=== PATIENT | female | born 1965 | race Caucasian/White ===

== ENCOUNTER 2018-07-25 23:24 | Inpatient (IN) | payer OTHER ==
[~2018-07-25] VITALS: Ht 160 cm; Wt 95.7 kg
[~2018-07-25 23:24] MED LIST: ALBU2.5V5 NEB; ASPI-630 PO; ATOR40TA59 PO; BENZ100C PO; CITA20TA9 PO; DICL50TA4 PO; FAMO-63 PO; LISI-130 PO; METO25TA4 PO; NITR1OIN TD; ONDA8TAB15 PO
[2018-07-26] VITALS (7 sets, daily range): BP systolic 90–135; BP diastolic 43–73
[2018-07-26] MEDS ORDERED: ALBUTEROL SULFATE 2.5 MG/3 ML NEBU. NEB PRN (05:45)
[2018-07-26 06:30] LABS: ALBUMIN 3.3 g/dL (3.4-5.0); ALBUMIN/GLOBULIN RATIO 1.1 (1.0-1.7); CALCIUM 8.6 mg/dL (8.5-10.1); CREATININE 0.9 mg/dL (0.6-1.0); GFR 65.5; POTASSIUM 4.8 mmol/L (3.5-5.1); TOTAL BILIRUBIN 0.2 mg/dL (0.2-1.0); TOTAL PROTEIN 6.2 g/dL (6.4-8.2)
[2018-07-26 06:52] LABS: BASO % 1 % (0-3); EOS # 0.1 x10^3/uL (0.0-0.7); EOS % 1 % (0-3); HEMATOCRIT 34.7 % (36.0-47.0); HEMOGLOBIN 11.4 g/dL (12.0-15.5); LYMPH # 1.5 x10^3/uL (1.0-4.8); LYMPH % 19 % (24-48); MEAN CORPUSCULAR HEMOGLOBIN 29 pg (25-35); MEAN CORPUSCULAR HGB CONC 33 g/dL (31-37); MEAN CORPUSCULAR VOLUME 87 fL (79-100); MONO # 0.5 x10^3/uL (0.0-1.1); MONO % 7 % (0-9); NEUT # 5.7 x10^3uL (1.8-7.7); NEUT % 73 % (31-73); PLATELET COUNT 270 x10^3/uL (140-400); RED BLOOD COUNT 3.99 x10^6/uL (3.50-5.40); RED CELL DISTRIBUTION WIDTH 15.2 % (11.5-14.5); WHITE BLOOD COUNT 7.9 x10^3/uL (4.0-11.0)
[2018-07-26] MEDS: DICLOFENAC SODIUM 25 MG TABLET.DR PO SCH ×2 (09:30→20:58)
[2018-07-26] MEDS: METOPROLOL TART IMMED RELEASE 25 MG TABLET. PO SCH ×2 (09:31→20:54)
[2018-07-26] MEDS: oxyCODONE IR 5 MG TABLET PO PRN ×2 (09:31→16:15)
[2018-07-26] MEDS: ASPIRIN CHEWABLE 81 MG TABLET. PO SCH (09:31)
[2018-07-26] MEDS: LISINOPRIL 20 MG TABLET PO SCH (09:31)
--- NOTE | 2018-07-26 09:52 | PDOC2 ---
CONSULT Date of Consult Date of Consult DATE: 07/26/18 TIME: 09:52 Reason for Consult Reason for Consult: Chest pain Referring Physician Referring Physician: Dr. Bunch Identification/Chief Complaint Chief Complaint Chest pain Source Source: Chart review, Patient History of Present Illness Reason for Visit: 53-year-old female initially presented to [facility] with atypical chest pain and a two-month history of tingling and numbness in her arms. CT scan of the cervical spine showed severe spinal stenosis at C4/C5 and C5/C6 level and transfer to [facility] for possible myelogram and neurosurgical evaluation. The chest pain she described was very atypical and not related to exertion or food intake. She denied any orthopnea/PND, palpitations or syncope. She has had cardiac catheterization in October 2017 that showed 50-60% stenosis of RCA which was physiologically insignificant based on IFR measurement. Past Medical History Past Medical History Nonobstructive coronary artery disease involving RCA Hypertension Hyperlipidemia Asthma DVT Past Surgical History Past Surgical History Right total knee arthroplasty Back surgery Cholecystectomy Hysterectomy Family History Family History Coronary artery disease Social History Social History Denies any smoking, alcohol or drug abuse Current Medications Current Medications Current Medications Albuterol Sulfate (Ventolin Neb Soln) 2.5 mg PRN Q4HRS PRN NEB SHORTNESS OF BREATH; Start 07/26/18 at 05:45 Aspirin (Children'S Aspirin) 81 mg DAILY PO Last administered on 07/26/18at 09: 31; Start 07/26/18 at 09:00 Atorvastatin Calcium (Lipitor) 40 mg QHS PO ; Start 07/26/18 at 21:00 Metoprolol Tartrate (Lopressor) 12.5 mg BID PO Last administered on 07/26/18at 09:31; Start 07/26/18 at 09:00 Diclofenac Sodium (Voltaren) 50 mg BID PO Last administered on 07/26/18at 09:30 ; Start 07/26/18 at 09:00 Lisinopril (Prinivil) 40 mg DAILY PO Last administered on 07/26/18at 09:31; Start 07/26/18 at 09:00 Oxycodone HCl (Roxicodone) 5 mg PRN Q6HRS PRN PO MODERATE TO SEVERE PAIN Last administered on 07/26/18at 09:31; Start 07/26/18 at 08:45 Active Scripts Active Diclofenac Sodium 50 Mg Tablet.dr 1 Tab PO BID Reported Metoprolol Tartrate 25 Mg Tablet 0.5 Tab PO BID Lisinopril 40 Mg Tablet 1 Tab PO DAILY Atorvastatin Calcium 40 Mg Tablet 1 Tab PO QHS Aspirin 81 Mg Tab.chew 1 Tab PO DAILY Albuterol Sulfate Neb Soln (Albuterol Sulfate) 2.5 Mg/3 Ml Vial.neb 1 Vial NEB PRN Q4HRS PRN Allergies Allergies: Coded Allergies: Penicillins (Verified Allergy, Intermediate, 10/30/17) codeine (Verified Allergy, Intermediate, 10/30/17) ibuprofen (Verified Allergy, Intermediate, RASH ON ARMS, 01/01/18) tramadol (Verified Allergy, Intermediate, 10/30/17) ROS PSYCHOLOGICAL ROS: No: Hallucinations Eyes: No Loss of vision HEENT: No: Epistaxis Respiratory: No: Hemoptysis, Shortness of breath Cardiovascular: yes Chest Pain; No Palpitations Gastrointestinal: No Vomiting, No Diarrhea Genitourinary: No Hematuria Neurological: Yes Other (tingling and numbness in arms) Physical Exam General: Alert, Oriented X3 HEENT: Atraumatic, PERRLA Lungs: Clear to auscultation Heart: Regular rate Abdomen: Soft, No tenderness Extremities: No edema Psych/Mental Status: Mood NL Vitals VITALS Vital Signs Date Time Temp Pulse Resp B/P (MAP) Pulse Ox O2 Delivery O2 Flow Rate FiO2 07/26/18 09:31 70 116/64 07/26/18 07:55 98.2 24 96 Nasal Cannula 2.0 98.2 Labs Labs Laboratory Tests Test 07/26/18 05:45 White Blood Count 7.9 x10^3/uL (4.0-11.0) Red Blood Count 3.99 x10^6/uL (3.50-5.40) Hemoglobin 11.4 g/dL (12.0-15.5) Hematocrit 34.7 % (36.0-47.0) Mean Corpuscular Volume 87 fL (79-100) Mean Corpuscular Hemoglobin 29 pg (25-35) Mean Corpuscular Hemoglobin Concent 33 g/dL (31-37) Red Cell Distribution Width 15.2 % (11.5-14.5) Platelet Count 270 x10^3/uL (140-400) Neutrophils (%) (Auto) 73 % (31-73) Lymphocytes (%) (Auto) 19 % (24-48) Monocytes (%) (Auto) 7 % (0-9) Eosinophils (%) (Auto) 1 % (0-3) Basophils (%) (Auto) 1 % (0-3) Neutrophils # (Auto) 5.7 x10^3uL (1.8-7.7) Lymphocytes # (Auto) 1.5 x10^3/uL (1.0-4.8) Monocytes # (Auto) 0.5 x10^3/uL (0.0-1.1) Eosinophils # (Auto) 0.1 x10^3/uL (0.0-0.7) Basophils # (Auto) 0.0 x10^3/uL (0.0-0.2) Sodium Level 142 mmol/L (136-145) Potassium Level 4.8 mmol/L (3.5-5.1) Chloride Level 104 mmol/L (98-107) Carbon Dioxide Level 31 mmol/L (21-32) Anion Gap 7 (6-14) Blood Urea Nitrogen 27 mg/dL (7-20) Creatinine 0.9 mg/dL (0.6-1.0) Estimated GFR (Cockcroft-Gault) 65.5 BUN/Creatinine Ratio 30 (6-20) Glucose Level 109 mg/dL (70-99) Calcium Level 8.6 mg/dL (8.5-10.1) Total Bilirubin 0.2 mg/dL (0.2-1.0) Aspartate Amino Transf (AST/SGOT) 17 U/L (15-37) Alanine Aminotransferase (ALT/SGPT) 22 U/L (14-59) Alkaline Phosphatase 96 U/L (46-116) Troponin I Quantitative < 0.017 ng/mL (0.000-0.055) Total Protein 6.2 g/dL (6.4-8.2) Albumin 3.3 g/dL (3.4-5.0) Albumin/Globulin Ratio 1.1 (1.0-1.7) Laboratory Tests Test 07/26/18 05:45 White Blood Count 7.9 x10^3/uL (4.0-11.0) Red Blood Count 3.99 x10^6/uL (3.50-5.40) Hemoglobin 11.4 g/dL (12.0-15.5) Hematocrit 34.7 % (36.0-47.0) Mean Corpuscular Volume 87 fL (79-100) Mean Corpuscular Hemoglobin 29 pg (25-35) Mean Corpuscular Hemoglobin Concent 33 g/dL (31-37) Red Cell Distribution Width 15.2 % (11.5-14.5) Platelet Count 270 x10^3/uL (140-400) Neutrophils (%) (Auto) 73 % (31-73) Lymphocytes (%) (Auto) 19 % (24-48) Monocytes (%) (Auto) 7 % (0-9) Eosinophils (%) (Auto) 1 % (0-3) Basophils (%) (Auto) 1 % (0-3) Neutrophils # (Auto) 5.7 x10^3uL (1.8-7.7) Lymphocytes # (Auto) 1.5 x10^3/uL (1.0-4.8) Monocytes # (Auto) 0.5 x10^3/uL (0.0-1.1) Eosinophils # (Auto) 0.1 x10^3/uL (0.0-0.7) Basophils # (Auto) 0.0 x10^3/uL (0.0-0.2) Sodium Level 142 mmol/L (136-145) Potassium Level 4.8 mmol/L (3.5-5.1) Chloride Level 104 mmol/L (98-107) Carbon Dioxide Level 31 mmol/L (21-32) Anion Gap 7 (6-14) Blood Urea Nitrogen 27 mg/dL (7-20) Creatinine 0.9 mg/dL (0.6-1.0) Estimated GFR (Cockcroft-Gault) 65.5 BUN/Creatinine Ratio 30 (6-20) Glucose Level 109 mg/dL (70-99) Calcium Level 8.6 mg/dL (8.5-10.1) Total Bilirubin 0.2 mg/dL (0.2-1.0) Aspartate Amino Transf (AST/SGOT) 17 U/L (15-37) Alanine Aminotransferase (ALT/SGPT) 22 U/L (14-59) Alkaline Phosphatase 96 U/L (46-116) Troponin I Quantitative < 0.017 ng/mL (0.000-0.055) Total Protein 6.2 g/dL (6.4-8.2) Albumin 3.3 g/dL (3.4-5.0) Albumin/Globulin Ratio 1.1 (1.0-1.7) Assessment/Plan Assessment/Plan 1. Chest pain with atypical features. Myocardial infarction has been ruled out. Recent cardiac catheterization in October 2017 showed nonobstructive coronary artery disease, 50-60% stenosis involving midsegment of dominant RCA that was physiologically insignificant based on IFR measurement. Check 2-D echocardiogram to rule out any new wall motion abnormalities. 2. Cervical Spinal stenosis: Neurosurgery team consulted 3. Hypertension: Controlled 4. Hyperlipidemia: Continue statin therapy Thank you for your consultation ARISTIDES GREEN MD Jul 26, 2018 09:52
--- NOTE | 2018-07-26 10:34 | HP ---
ADMIT DATE: 07/26/2018 HISTORY OF PRESENT ILLNESS: The patient is a 53-year-old female patient who came to the Emergency Room of [facility] with a complaint of chest pain that is described as central chest pain has continued whole day yesterday. She also complained of tingling and numbness all the way to her hands and also feet that has been going on for almost a week now. She describes her chest pain as 10/10 in severity, associated with shortness of breath, but denied any nausea or vomiting, denied any diaphoresis. She was evaluated extensively in the Emergency Room of [facility] and basically has had an EKG, which showed that she was in sinus rhythm at a heart rate of 83 beats per minute with no evidence of ST segment elevation or depression. She had had a chest x-ray, which showed no acute cardiopulmonary abnormalities. CT scan of cervical spine showed multilevel degenerative joint changes with facet narrowing and severe spinal stenosis at C4-C5, C5-C6 and therefore, the patient was transferred to [facility] for further evaluation as she might require MRI and/or myelogram and evaluation by the neurosurgical team. The Emergency Room physician felt that the pain in her chest and arms is more likely related to cervical radiculopathy rather than cardiac as she apparently was evaluated for chest pain on 01/30/2018 as she had had previous stress testing and her last catheterization, it was found to have 50% occlusion of the left circumflex artery. PAST MEDICAL HISTORY: Significant for hypertension, hyperlipidemia, bronchial asthma, history of DVT and her most recent cardiac catheterization, it showed that she has 50% stenosis of the left circumflex artery and the Cardiology team did not recommend any stenting. PAST SURGICAL HISTORY: Significant for right total knee arthroplasty in 2016, back surgery in 2016, cholecystectomy, total abdominal hysterectomy, bilateral salpingectomy, as well as colonoscopy. ALLERGIES: She is allergic to PENICILLIN, CODEINE, IBUPROFEN, and TRAMADOL. FAMILY HISTORY: The patient has 1 brother who has 4 stents and one sister who has 2 stents. Her father at age of 49 because of myocardial infarction. Mother at the age of 74 because of breast cancer. She was twice. Currently, single, lives with her boyfriend. SOCIAL HISTORY: She has 2 sons. She has never smoked, does not drink alcohol or use recreational drugs. She is currently on disability. REVIEW OF SYSTEMS: As per history of present illness. PHYSICAL EXAMINATION: GENERAL: On arrival, she looked well and was clearly in no apparent respiratory distress, slightly pale, no jaundice, cyanosis, or thyromegaly. No jugular venous distension. No limb edema. VITAL SIGNS: Her heart rate was 85, blood pressure was 97.5, respiratory rate was 15 and oxygen saturation was 95% on room air. Her blood pressure was 102/68. HEAD: Showed normocephalic, atraumatic. NECK: Supple. HEART: Showed normal first and second heart sounds. No gallop, rub, or murmur. CHEST: Shows central trachea, equal bilateral expansion, air entry, vesicular sounds. No crepitation or rhonchi. ABDOMEN: Distended, soft, nontender. NEUROLOGIC: She is awake, alert, responding appropriately. All cranial nerves intact. EXTREMITIES: She moves extremities without difficulty. She does complain of tingling in both arms and her upper extremities and her feet, but denied any problem with her bowel and bladder. LABORATORY DATA: Her lab work done at the [facility] Emergency Room showed that her urinalysis, the urine was yellow, cloudy with a pH of 5.5, specific gravity 1.025. The urine was negative for protein, glucose, ketones. There was trace of blood, negative for nitrite and trace of leukocyte esterase, 1-2 rbc's, 5-10 wbc's and very few bacteria. The urine toxicology screen showed that the patient was positive for opiates, negative for all other drugs. Her white cell count was 10,700, hemoglobin 13.7, hematocrit 41, MCV 86, and platelet count of 301,000. Her prothrombin time was 9.7 and INR of 1, aPTT was 23. D-dimer was 0.43 mg/dL. Serum sodium 143, potassium 3.6, chloride 104, bicarbonate 29, anion gap of 10, BUN 25, creatinine was 0.9, estimated GFR was 66 mL per minute. Her glucose 135, calcium was 9.2, magnesium was 1.7. Total bilirubin, AST, ALT, alkaline phosphatase are all normal. Her troponin was less than 0.017. Beta natriuretic peptide was 175. Total protein was 7.8, albumin 3.8. Serum lipase 141. Her EKG showed that she was in sinus rhythm at 83 beats per minute. No ST segment elevation or depression. Chest x-ray showed no acute cardiopulmonary abnormalities. She does have hardware from previous cervical fixation and laminectomy. CT scan of the cervical spine showed multilevel degenerative joint disease, facet narrowing and severe narrowing at C4-C5, C5-C6 cervical spine. ASSESSMENT AND PLAN: 1. The patient was admitted to [facility] with chest pain, which is atypical. 2. Hypertension. 3. Hyperlipidemia. 4. Type 2 diabetes mellitus. 5. Coronary artery disease. 6. Does have urinary tract infection and then she was started on Bactrim. PLAN: My plan is to consult the dynamite reclaimer as well as the neurosurgical team. Continue with all her medications and decide on further management accordingly. ANITA TAY MD DR: KAYLIN/sherman JOB#: [id number] / [id number]
--- NOTE | 2018-07-26 12:03 | PDOC ---
Provider Note Provider Note patient seen and examined 1 month history of pain in her neck, should, arms and legs tingling sensation in face arms and legs neuro intact CT with post op changes C5-7 fusion and moderate stenosis at C4-5 Cervical MRI ordered Will follow full consult to follow ZHAO UNDERWOOD MD Jul 26, 2018 12:03
[2018-07-26] MEDS ORDERED: ATORVASTATIN CALCIUM 40 MG TABLET. PO SCH (21:00)
--- NOTE | 2018-07-27 00:31 | PN ---
DATE: 07/26/2018 SUBJECTIVE: The patient was transferred yesterday from [facility] Emergency Room with chest pain that was fairly atypical associated with tingling both upper and lower extremities. She is known to have spinal spondylosis and has had before surgical treatment. She is known also to have coronary artery disease with 50% stenosis of her left circumflex artery for which the Cardiology team recommended medical treatment. In fact, the patient has been in and out multiple times from [facility] for chest pain. On questioning her this morning, she continued to complain of tingling and numbness in her upper extremities and chest pain together with shortness of breath, but denied any nausea or vomiting, denied any diaphoresis. OBJECTIVE: GENERAL: When I examined her, she looked well, slightly pale, but no jaundice, cyanosis or thyromegaly. No jugular venous distension. No lower limb edema. VITAL SIGNS: Her heart rate was 64, blood pressure was 135/48, temperature was 97.6, respiratory rate was 16 and oxygen saturation was 99% on 2 liters of oxygen. HEAD, EYES, EARS, NOSE AND THROAT: Showed normocephalic, atraumatic. NECK: Supple. HEART: Showed normal first and second sounds. No gallop, rub or murmur. CHEST: Clear to auscultation. No crepitation or rhonchi. ABDOMEN: Distended, soft, nontender. NEUROLOGIC: She was awake, alert, responding appropriately. Cranial nerves intact. She moves extremities without difficulty. LABORATORY DATA: This morning showed a serum sodium 142, potassium 4.8, chloride 104, bicarbonate 31, anion gap of 7, BUN 27, creatinine was 0.9, estimated GFR was 65 mL per minute. Her glucose 109, calcium was 8.6. Total bilirubin, AST, ALT, alkaline phosphatase were normal. Total protein was 6.2, albumin 3.3. Her white cell count was 7900, hemoglobin 11, hematocrit 34, MCV 87 and platelet count 270,000. ASSESSMENT: Chest pain. So far she has 2 sets of cardiac enzyme, showed no evidence of myocardial infarction. Her EKG showed no evidence of ST-T changes, felt to be probably secondary to her cervical spondylosis. The patient has tingling and numbness in both upper extremities as well as her feet. Denied any problems with her bowel or bladder. She has history of previous cervical fixation on laminectomy and a CT scan done showed facet narrowing and severe narrowing and spinal stenosis at C4-C5 and C5-C6. PLAN: My plan is to consult the Cardiology team as well as Neurosurgical team. We will arrange for her to have an MRI of her cervical spine with contrast if the hardware is compatible with MRI, otherwise might require cervical myelography. For her pain, I started her on oxycodone immediate release 5 mg every 6 hours, meanwhile I resumed all her medications. ANITA TAY MD DR: KAYLIN/sherman JOB#: [id number] / [id number]
[2018-07-27 03:10] VITALS: BP 83/55
[2018-07-27 07:23] VITALS: BP 112/54
[2018-07-27] MEDS: METOPROLOL TART IMMED RELEASE 25 MG TABLET. PO SCH (07:53)
[2018-07-27] MEDS: LISINOPRIL 20 MG TABLET PO SCH (07:54)
[2018-07-27] MEDS: ASPIRIN CHEWABLE 81 MG TABLET. PO SCH (07:54)
[2018-07-27] MEDS: oxyCODONE IR 5 MG TABLET PO PRN (07:56)
--- NOTE | 2018-07-27 08:17 | RAD ---
EXAM: Cervical spine MRI without contrast. HISTORY: Radiculopathy. TECHNIQUE: Multiplanar, multisequence magnetic resonance imaging of the cervical spine was performed without contrast. COMPARISON: CT dated 07/25/2018. FINDINGS: There is instrumented anterior spinal fusion and interbody fusion at C5-C7. There is straightening of cervical lordosis. There is minimal anterolisthesis of C2 on C3 and C7 on T1. There is degenerative endplate remodeling with osteophytosis primarily at C3-C4. There is slight deformation of the cervical spinal cord predominantly at C4-C5, described in detail below. No spinal cord signal abnormality is seen. The posterior fossa and skull base are unremarkable. There is bilateral maxillary sinus mucosal thickening. There is no suspicious osseous lesion. There is no acute or subacute fracture. At C2-C3, there is a disc bulge and endplate remodeling. There is mild right and moderate to severe left facet arthropathy. There is mild left foraminal stenosis. At C3-C4, there is a broad-based posterior central disc protrusion superimposed on a disc bulge and endplate osteophytosis. There is mild right and moderate to severe left facet arthropathy. There is bilateral uncovertebral arthropathy. There is moderate right and moderate to severe left foraminal stenosis. There is deformation of the ventral aspect of the spinal cord and mild to moderate central canal stenosis measuring 7.6 mm in anterior posterior dimension. At C4-C5, there is a broad-based right paracentral to foraminal disc osteophyte complex with 5 mm superior and 6 mm inferior disc extrusion superimposed on right posterior lateral predominant endplate osteophytosis. There is mild right greater than left facet arthropathy. There is right uncovertebral arthropathy. There is severe right foraminal stenosis. There is deformation of the right ventral aspect of spinal cord and mild to moderate central canal stenosis measuring 7.5 mm in anterior posterior dimension. At C5-C6, there is instrumented fusion. There is no stenosis. At C6-C7, there is instrumented fusion. There is a left paracentral disc osteophyte complex or endplate osteophytosis. There is no stenosis. At C7-T1, there is mild right and moderate to severe left facet arthropathy. There is mild left foraminal stenosis. IMPRESSION: 1. Instrumented anterior spinal fusion and interbody fusion at C5-C7. 2. Multilevel degenerative change involving the cervical spine, described in detail above. This results in mild left foraminal stenosis at C2-C3, moderate right and moderate to severe left foraminal and mild to moderate central canal stenosis at C3-C4, and severe right foraminal and mild to moderate central canal stenosis at C4-C5 and mild left foraminal stenosis at C7-T1. Electronically signed by: Sharla Olivier MD (07/27/2018 8:14 AM) [id number]
[2018-07-27] MEDS: DICLOFENAC SODIUM 25 MG TABLET.DR PO SCH (08:51)
--- NOTE | 2018-07-27 09:28 | CARD ---
MR#: [id number] Date of Study: 07/27/2018 Ordering Physician: ARISTIDES GREEN, Referring Physician: ANITA TAY Tech: Lucita Michelle DESTINI APPROVED REPORT EXAM: Two-dimensional and M-mode echocardiogram with Doppler and color Doppler. Other Information Quality : Good INDICATION Chest Pain 2D DIMENSIONS RVDd2.9 (2.9-3.5cm)Left Atrium(2D)4.1 (1.6-4.0cm) IVSd0.8 (0.7-1.1cm)Aortic Root(2D)2.5 (2.0-3.7cm) LVDd5.4 (3.9-5.9cm)LVOT Diameter2.0 (1.8-2.4cm) PWd0.8 (0.7-1.1cm)LVDs3.0 (2.5-4.0cm) FS (%) 30.0 %SV106.3 ml LVEF(%)60.0 (>50%) Aortic Valve AoV Peak Ed.138.4cm/sAoV VTI28.5cm AO Peak GR.7.7mmHgLVOT Peak Ed.111.6cm/s AO Mean GR.4mmHgAVA (VMAX)2.60cm2 RODRÍGUEZ (VTI)2.90cm2 Mitral Valve MV E Ssxpcjnf117.1cm/sMV DECEL TAXN425sg MV A Ocizpfvl69.9cm/sE/A Ratio1.3 Tricuspid Valve TR P. Sixchbfd065wx/sRAP AEGSYXOE1cjUt TR Peak Gr.52ouPiAZPF82ebGa Pulmonary Vein S1 Reumnrdk26.7cm/sD2 Nlhxfauk76.6cm/s LEFT VENTRICLE The left ventricle is normal size. There is normal left ventricular wall thickness. The left ventricu lar systolic function is normal. The Ejection Fraction is 55-60%. There is normal LV segmental wall m otion. The left ventricular diastolic function and filling is normal for age. RIGHT VENTRICLE The right ventricle is normal size. The right ventricular systolic function is normal. ATRIA The left atrium is mildly dilated. The right atrium size is normal. The interatrial septum is intact with no evidence for an atrial septal defect or patent foramen ovale as noted on 2-D or Doppler imagi ng. AORTIC VALVE The aortic valve is normal in structure and function. Doppler and Color Flow revealed no significant aortic regurgitation. There is no significant aortic valvular stenosis. MITRAL VALVE The mitral valve is calcified but opens well. There is no evidence of mitral valve prolapse. There is no mitral valve stenosis. Doppler and Color-flow revealed trace mitral regurgitation. TRICUSPID VALVE The tricuspid valve is normal in structure and function. Doppler and Color Flow revealed trace tricus pid regurgitation. The PA pressure was estimated at 32 mmHg. There is no tricuspid valve stenosis. PULMONIC VALVE The pulmonic valve is not well visualized. Doppler and Color Flow revealed trace pulmonic valvular re gurgitation. There is no pulmonic valvular stenosis. GREAT VESSELS The aortic root is normal in size. The ascending aorta is mildly dilated at 3.7 cm. The IVC is normal in size and collapses >50% with inspiration. PERICARDIAL EFFUSION There is no evidence of significant pericardial effusion. Critical Notification Critical Value: No <Conclusion> The left ventricular systolic function is normal. The Ejection Fraction is 55-60%. There is normal LV segmental wall motion. The left atrium is mildly dilated. Trace mitral regurgitation. Trace tricuspid regurgitation. The PA pressure was estimated at 32 mmHg. There is no evidence of significant pericardial effusion. Signed by : Aristides Green, Electronically Approved : 07/27/2018 09:27:55
--- NOTE | 2018-07-27 10:21 | PDOC ---
CARDIO Progress Notes Date and Time Date of Service 07/27/18 Time of Evaluation 0950 Subjective Subjective: No Chest Pain, No shortness of breath Vitals Vitals Vital Signs Date Time Temp Pulse Resp B/P (MAP) Pulse Ox O2 Delivery O2 Flow Rate FiO2 07/27/18 08:56 20 97 Room Air 07/27/18 07:56 2.0 07/27/18 07:54 66 112/54 07/27/18 07:23 97.5 97.5 Weight Weight [ ] Input and Output Intake and Output Intake and Output 07/27/18 06:59 Intake Total 1690 ml Output Total 800 ml Balance 890 ml Intake Oral 1690 ml Output Urine Total 800 ml Physical Exam HEENT: Neck Supple W Full Motion Chest: Symmetric LUNGS: Clear to Auscultation Heart: S1S2, RRR Abdomen: Soft N/T Extremities: No Calf Tenderness Neurology: alert, oriented, follow commands Assessment Assessment 1. Chest pain, atypical. AMI ruled out. Cardiac cath 10/2017 showed nonobstructive CAD. Echo revealed normal LV systolic function with an EF 55-60% . No WMA. 2. Cervical Spinal stenosis: Neurosurgery team consulted 3. Hypertension; controlled 4. Hyperlipidemia; statin Recommedations Continue ASA, statin, BB, and ACEi Supportive care May discharge from a CV standpoint and f/u in our office in 1 month. VANESSA KIDD APRN Jul 27, 2018 10:21
[2018-07-27 10:53] VITALS: BP 106/50
--- NOTE | 2018-07-27 11:46 | PDOC ---
PROGRESS NOTES Subjective Subjective no new complaints wants to go home Objective Objective Vital Signs Date Time Temp Pulse Resp B/P (MAP) Pulse Ox O2 Delivery O2 Flow Rate FiO2 07/27/18 10:53 97.5 55 18 106/50 (68) 97 Room Air 97.5 07/27/18 07:56 2.0 Intake and Output 07/27/18 06:59 Intake Total 1690 ml Output Total 800 ml Balance 890 ml Intake Oral 1690 ml Output Urine Total 800 ml Physical Exam General: Alert, Oriented X3, Cooperative MUSCULOSKELETAL: Other (RIZVI) Neuro: Normal speech, Strength at 5/5 X4 ext Plan Plan of Care reviewed Cervical MRI - mild to moderate central canal stenosis with areas of foraminal narrowing recommend MEGHANN as OP, will send referral she will follow up with me as needed Comment Review of Relevant I have reviewed the following items carlos (where applicable) has been applied. Labs Laboratory Tests Test 07/26/18 05:45 White Blood Count 7.9 x10^3/uL (4.0-11.0) Red Blood Count 3.99 x10^6/uL (3.50-5.40) Hemoglobin 11.4 g/dL (12.0-15.5) Hematocrit 34.7 % (36.0-47.0) Mean Corpuscular Volume 87 fL (79-100) Mean Corpuscular Hemoglobin 29 pg (25-35) Mean Corpuscular Hemoglobin Concent 33 g/dL (31-37) Red Cell Distribution Width 15.2 % (11.5-14.5) Platelet Count 270 x10^3/uL (140-400) Neutrophils (%) (Auto) 73 % (31-73) Lymphocytes (%) (Auto) 19 % (24-48) Monocytes (%) (Auto) 7 % (0-9) Eosinophils (%) (Auto) 1 % (0-3) Basophils (%) (Auto) 1 % (0-3) Neutrophils # (Auto) 5.7 x10^3uL (1.8-7.7) Lymphocytes # (Auto) 1.5 x10^3/uL (1.0-4.8) Monocytes # (Auto) 0.5 x10^3/uL (0.0-1.1) Eosinophils # (Auto) 0.1 x10^3/uL (0.0-0.7) Basophils # (Auto) 0.0 x10^3/uL (0.0-0.2) Sodium Level 142 mmol/L (136-145) Potassium Level 4.8 mmol/L (3.5-5.1) Chloride Level 104 mmol/L (98-107) Carbon Dioxide Level 31 mmol/L (21-32) Anion Gap 7 (6-14) Blood Urea Nitrogen 27 mg/dL (7-20) Creatinine 0.9 mg/dL (0.6-1.0) Estimated GFR (Cockcroft-Gault) 65.5 BUN/Creatinine Ratio 30 (6-20) Glucose Level 109 mg/dL (70-99) Calcium Level 8.6 mg/dL (8.5-10.1) Total Bilirubin 0.2 mg/dL (0.2-1.0) Aspartate Amino Transf (AST/SGOT) 17 U/L (15-37) Alanine Aminotransferase (ALT/SGPT) 22 U/L (14-59) Alkaline Phosphatase 96 U/L (46-116) Troponin I Quantitative < 0.017 ng/mL (0.000-0.055) Total Protein 6.2 g/dL (6.4-8.2) Albumin 3.3 g/dL (3.4-5.0) Albumin/Globulin Ratio 1.1 (1.0-1.7) Medications Current Medications Albuterol Sulfate (Ventolin Neb Soln) 2.5 mg PRN Q4HRS PRN NEB SHORTNESS OF BREATH; Start 07/26/18 at 05:45 Aspirin (Children'S Aspirin) 81 mg DAILY PO Last administered on 07/27/18at 07:54 ; Start 07/26/18 at 09:00 Atorvastatin Calcium (Lipitor) 40 mg QHS PO Last administered on 07/26/18at 20: 54; Start 07/26/18 at 21:00 Metoprolol Tartrate (Lopressor) 12.5 mg BID PO Last administered on 07/27/18at 07 :53; Start 07/26/18 at 09:00 Diclofenac Sodium (Voltaren) 50 mg BID PO Last administered on 07/27/18at 08:51; Start 07/26/18 at 09:00 Lisinopril (Prinivil) 40 mg DAILY PO Last administered on 07/27/18at 07:54; Start 07/26/18 at 09:00 Oxycodone HCl (Roxicodone) 5 mg PRN Q6HRS PRN PO MODERATE TO SEVERE PAIN Last administered on 07/27/18at 07:56; Start 07/26/18 at 08:45 Active Scripts Active Diclofenac Sodium 50 Mg Tablet.dr 1 Tab PO BID Reported Metoprolol Tartrate 25 Mg Tablet 0.5 Tab PO BID Lisinopril 40 Mg Tablet 1 Tab PO DAILY Atorvastatin Calcium 40 Mg Tablet 1 Tab PO QHS Aspirin 81 Mg Tab.chew 1 Tab PO DAILY Albuterol Sulfate Neb Soln (Albuterol Sulfate) 2.5 Mg/3 Ml Vial.neb 1 Vial NEB PRN Q4HRS PRN Vitals/I & O Vital Sign - Last 24 Hours 07/26/18 07/26/18 07/26/18 07/26/18 15:30 17:15 19:30 19:39 Temp 98.0 97.6 98.0 97.6 Pulse 59 57 Resp 20 20 B/P (MAP) 100/47 (64) 98/49 (65) Pulse Ox 100 96 O2 Delivery Nasal Cannula Nasal Cannula Nasal Cannula O2 Flow Rate 2.0 2.0 2.0 2.0 07/26/18 07/26/18 07/27/18 07/27/18 20:54 22:40 03:10 07:23 Temp 97.7 97.8 97.5 97.7 97.8 97.5 Pulse 64 57 59 54 Resp 18 18 18 B/P (MAP) 110/70 90/43 (59) 83/55 (64) 112/54 (73) Pulse Ox 97 93 97 O2 Delivery Room Air Room Air Room Air 07/27/18 07/27/18 07/27/18 07/27/18 07:53 07:54 07:56 08:00 Pulse 66 66 Resp 20 B/P (MAP) 112/54 112/54 Pulse Ox 97 O2 Delivery Nasal Cannula Room Air O2 Flow Rate 2.0 07/27/18 07/27/18 08:56 10:53 Temp 97.5 97.5 Pulse 55 Resp 20 18 B/P (MAP) 106/50 (68) Pulse Ox 97 97 O2 Delivery Room Air Room Air Intake and Output 07/26/18 07/26/1819 14:59 22:59 06:59 Intake Total 90 ml 1200 ml 400 ml Output Total 550 ml 250 ml Balance 90 ml 650 ml 150 ml WILLIS JOSE SEISMIC PROSPECTING OBSERVER Jul 27, 2018 11:46
[2018-07-27] MEDS ORDERED: VENTOLIN HFA18 GM INH (11:50)
--- NOTE | 2018-07-27 13:33 | NUR ---
Discharge teaching provided written and verbal to pt,understanding verbalized. Dismissed to home with all belongings accompanied by her boyfriend. Transported to exit per w/c at 1330.
[2018-08-04] MEDS ORDERED: NITR0.4T22 SL (09:18)
== END 2018-07-27 13:30 | disposition home or self-care (01) | DRG 552 ==
LOC: 2 NORTH 23:24
PROVIDERS: ADMIT Internal Medicine; ATTEND Internal Medicine
DX: M48.02 Spinal stenosis, cervical region (principal); N39.0 Urinary tract infection, site not specified; E78.5 Hyperlipidemia, unspecified; J45.909 Unspecified asthma, uncomplicated; I10 Essential (primary) hypertension; K21.9 Gastro-esophageal reflux disease without esophagitis; E11.9 Type 2 diabetes mellitus without complications; I25.10 Atherosclerotic heart disease of native coronary artery without angina pectoris; Z96.651 Presence of right artificial knee joint; Z90.710 Acquired absence of both cervix and uterus; Z88.0 Allergy status to penicillin; Z88.6 Allergy status to analgesic agent; Z88.5 Allergy status to narcotic agent; Z79.82 Long term (current) use of aspirin; Z79.899 Other long term (current) drug therapy; Z86.718 Personal history of other venous thrombosis and embolism; Z82.49 Family history of ischemic heart disease and other diseases of the circulatory system; Z80.3 Family history of malignant neoplasm of breast
CPT/HCPCS: 36415; 72141; 80053; 84484; 85025; 93306

== ENCOUNTER 2018-08-04 22:04 | Emergency (ER) | payer OTHER ==
[~2018-08-04] VITALS: Ht 160 cm; Wt 91.6 kg
[2018-08-04 22:15] VITALS: BP 161/81
--- NOTE | 2018-08-04 22:26 | PHYS DOC ---
Past Medical History Past Medical History: Asthma, High Cholesterol, Hypertension, Other Additional Past Medical Histor: PE Alcohol Use: None Drug Use: None Adult General Chief Complaint Chief Complaint: CHEST PAIN HPI HPI 53-year-old female presents to ER via EMS with complaints of left-sided chest pain which started yesterday morning. She reports she was not doing any exertional activities and was sitting watching TV when left side chest pain started. She reports she has had exertional shortness of air. She reports symptoms have been gradually worsening over the past 24 hours and so she came in to the ER for evaluation. She reports she was just discharged from [facility] on 07/27/18 for similar symptoms. Patient denies abdominal pain, nausea or vomiting, fever, or cough. Patient reports pain is aching and sharp and she reports she has had some tingling in bilateral upper extremities denying any swelling or skin discoloration. EMS administered 324 mg aspirin and 1 SL nitroglycerin prior to arrival to ER. Patient states she had no change in symptoms with nitroglycerin Review of Systems Review of Systems Constitutional: Denies fever or chills [] Eyes: Denies change in visual acuity, redness, or eye pain [] HENT: Denies nasal congestion or sore throat [] Respiratory: Denies cough. Reports SOA which increases with exertion Cardiovascular: Reports lt side CP- denies radiation of pain to back/neck/ extremities GI: Denies abdominal pain, nausea, vomiting, bloody stools or diarrhea [] : Denies dysuria or hematuria [] Musculoskeletal: Denies back/neck pain or joint pain [] Integument: Denies rash or skin lesions [] Neurologic: Denies headache, focal weakness or sensory changes. Reports tingling in bilat. upper extremities Endocrine: Denies polyuria or polydipsia [] All other systems were reviewed and found to be within normal limits, except as documented in this note. Current Medications Current Medications Current Medications Medications (Trade) Dose Ordered Sig/Len Start Time Stop Time Status Last Admin Dose Admin Albuterol/ Ipratropium (Duoneb) 3 ml 1X ONCE 08/05/18 00:00 08/05/18 00:01 DC 08/05/18 00:13 3 ML Prednisone (Prednisone) 50 mg 1X ONCE 08/04/18 22:30 08/04/18 22:31 DC 08/04/18 22:41 50 MG Allergies Allergies Allergies Coded Allergies Type Severity Reaction Last Updated Verified Penicillins Allergy Intermediate 10/30/17 Yes codeine Allergy Intermediate 10/30/17 Yes ibuprofen Allergy Intermediate RASH ON ARMS 01/01/18 Yes tramadol Allergy Intermediate 10/30/17 Yes Physical Exam Physical Exam Constitutional: Well developed, well nourished, no acute distress, non-toxic appearance. [] HENT: Normocephalic, atraumatic, oropharynx moist, nose normal. [] Eyes: Pupils equal, conjunctiva normal, no discharge. [] Neck: Normal range of motion, no tenderness, supple, no stridor. [] Cardiovascular: Heart rate regular rhythm, no murmur [] Lungs & Thorax: Bilateral breath sounds clear to auscultation- diminished air movement throughout all lung cardona with less air movement in bases. Respirations equal and nonlabored. Speaking in full sentences Abdomen: Bowel sounds normal, soft, no tenderness, no masses, no pulsatile masses. [] Skin: Warm, dry, no erythema, no rash. [] Back: No tenderness, no CVA tenderness. [] Extremities: No tenderness, no cyanosis, no clubbing, ROM intact, no edema. [] Neurologic: Alert and oriented X 3, normal motor function, normal sensory function, no focal deficits noted. [] Psychologic: Affect normal, judgement normal, mood normal. [] Current Patient Data Vital Signs Vital Signs Date Time Temp Pulse Resp B/P (MAP) Pulse Ox O2 Delivery O2 Flow Rate FiO2 08/05/18 00:13 93 08/04/18 22:52 Room Air 08/04/18 22:15 98.1 91 16 161/81 (107) 98.1 Lab Values Laboratory Tests Test 08/04/18 22:15 White Blood Count 9.6 x10^3/uL (4.0-11.0) Red Blood Count 4.24 x10^6/uL (3.50-5.40) Hemoglobin 12.0 g/dL (12.0-15.5) Hematocrit 36.5 % (36.0-47.0) Mean Corpuscular Volume 86 fL (79-100) Mean Corpuscular Hemoglobin 28 pg (25-35) Mean Corpuscular Hemoglobin Concent 33 g/dL (31-37) Red Cell Distribution Width 14.7 % (11.5-14.5) H Platelet Count 278 x10^3/uL (140-400) Neutrophils (%) (Auto) 67 % (31-73) Lymphocytes (%) (Auto) 24 % (24-48) Monocytes (%) (Auto) 6 % (0-9) Eosinophils (%) (Auto) 1 % (0-3) Basophils (%) (Auto) 1 % (0-3) Neutrophils # (Auto) 6.4 x10^3uL (1.8-7.7) Lymphocytes # (Auto) 2.3 x10^3/uL (1.0-4.8) Monocytes # (Auto) 0.6 x10^3/uL (0.0-1.1) Eosinophils # (Auto) 0.1 x10^3/uL (0.0-0.7) Basophils # (Auto) 0.1 x10^3/uL (0.0-0.2) Sodium Level 142 mmol/L (136-145) Potassium Level 3.7 mmol/L (3.5-5.1) Chloride Level 105 mmol/L (98-107) Carbon Dioxide Level 26 mmol/L (21-32) Anion Gap 11 (6-14) Blood Urea Nitrogen 17 mg/dL (7-20) Creatinine 0.8 mg/dL (0.6-1.0) Estimated GFR (Cockcroft-Gault) 75.0 BUN/Creatinine Ratio 21 (6-20) H Glucose Level 134 mg/dL (70-99) H Calcium Level 8.6 mg/dL (8.5-10.1) Magnesium Level 1.9 mg/dL (1.8-2.4) Total Bilirubin 0.2 mg/dL (0.2-1.0) Aspartate Amino Transferase (AST) 18 U/L (15-37) Alanine Aminotransferase (ALT) 23 U/L (14-59) Alkaline Phosphatase 96 U/L (46-116) Troponin I Quantitative < 0.017 ng/mL (0.000-0.055) Total Protein 7.1 g/dL (6.4-8.2) Albumin 3.5 g/dL (3.4-5.0) Albumin/Globulin Ratio 1.0 (1.0-1.7) Laboratory Tests 08/04/18 22:15 Laboratory Tests 08/04/18 22:15 EKG EKG EKG obtained 08/04/18 at [address] Almaraz Sinus rhythm Ltward axis Rate 91 No STEMI Radiology/Procedures Radiology/Procedures [] Course & Med Decision Making Course & Med Decision Making Pertinent Labs and Imaging studies reviewed. (See chart for details) 2315: Pt's chest xray viewed by Dr. Almaraz- no obvious acute findings. 0035: Following second DuoNeb treatment on reevaluation patient reports her breathing has improved. Lung sounds have increased air movement throughout with no abnormal sounds. Respirations are equal and nonlabored. O2 saturation is 98% on room air. Patient states she is feeling much better and is wanting home discharge versus admission as this was offered for further eval/care. She said with improved symptoms and test normal limits she is comfortable with home discharge with plans to follow-up with her primary care physician. Patient does have history of asthma and reports she does have inhaler at home she can use for cough and shortness of air. Pt is in no visible distress and remains nontoxic in appearance at this time. Again all test results were discussed with the EKG showing no acute ST elevation and troponin was <0.017. Patient reports aching and chest has also improved with her improved air movement in lungs. Education provided on signs and symptoms to return to ER. Discharge instructions were discussed. Patient to follow-up with primary care physician if symptoms persist or with any concerns. Dragon Disclaimer Dragon Disclaimer This electronic medical record was generated, in whole or in part, using a voice recognition dictation system. Departure Departure Impression: Primary Impression: Asthma exacerbation Additional Impression: Chest pain Disposition: 01 HOME, SELF-CARE Condition: STABLE Referrals: FRANCISCO MADRID MD (PCP) Patient Instructions: Asthma, Adult, Chest Pain (Nonspecific) Additional Instructions: Drink plenty of fluids. Use your inhaler as prescribed. If symptoms persist or with concerns follow-up with your primary care physician for reevaluation and further care. Problem Qualifiers NIK AG APRN Aug 04, 2018 22:26
[2018-08-04 22:29] LABS: BASO # 0.1 x10^3/uL (0.0-0.2); BASO % 1 % (0-3); EOS # 0.1 x10^3/uL (0.0-0.7); EOS % 1 % (0-3); HEMATOCRIT 36.5 % (36.0-47.0); LYMPH # 2.3 x10^3/uL (1.0-4.8); LYMPH % 24 % (24-48); MEAN CORPUSCULAR HEMOGLOBIN 28 pg (25-35); MEAN CORPUSCULAR HGB CONC 33 g/dL (31-37); MEAN CORPUSCULAR VOLUME 86 fL (79-100); MONO # 0.6 x10^3/uL (0.0-1.1); MONO % 6 % (0-9); NEUT # 6.4 x10^3uL (1.8-7.7); NEUT % 67 % (31-73); PLATELET COUNT 278 x10^3/uL (140-400); RED BLOOD COUNT 4.24 x10^6/uL (3.50-5.40); RED CELL DISTRIBUTION WIDTH 14.7 % (11.5-14.5); WHITE BLOOD COUNT 9.6 x10^3/uL (4.0-11.0)
[2018-08-04] MEDS ORDERED: IPRATRPIUM/ALBUTEROL 0.5/2.5MG 3 ML NEBU. NEB ONE (22:30)
[2018-08-04] MEDS ORDERED: predniSONE 10 MG TABLET PO ONE (22:30)
[2018-08-04 22:38] LABS: CALCIUM 8.6 mg/dL (8.5-10.1); CREATININE 0.8 mg/dL (0.6-1.0); POTASSIUM 3.7 mmol/L (3.5-5.1)
[2018-08-04 22:45] LABS: ALBUMIN 3.5 g/dL (3.4-5.0); MAGNESIUM 1.9 mg/dL (1.8-2.4); TOTAL BILIRUBIN 0.2 mg/dL (0.2-1.0); TOTAL PROTEIN 7.1 g/dL (6.4-8.2)
[2018-08-05] MEDS ORDERED: IPRATRPIUM/ALBUTEROL 0.5/2.5MG 3 ML NEBU. NEB ONE
--- NOTE | 2018-08-05 07:05 | EKG ---
[facility] [address] [place] [address] Test Date: 2018-08-04 Test Time: 22:10:06 Pat Name: MAREK ARGUETA Department: Room: Gender: F Vp Strategy: : 1965 Requested By: NIK AG Order Number: [id number] Reading MD: David Yap MD Measurements Intervals [place] Rate: 90 P: -4 LA: 148 QRS: -3 QRSD: 84 T: 14 QT: 354 QTc: 437 Interpretive Statements SINUS RHYTHM NON-SPECIFIC ST/T CHANGES Electronically Signed On 08-17-2018 9:53:10 CDT by David Yap MD
--- NOTE | 2018-08-05 07:52 | RAD ---
CHEST PA LATERAL History: cp/soa Comparison: 01/01/2018 two-view chest x-ray exam. Findings: The cardiomediastinal silhouette is normal. Pulmonary vasculature is normal. The lungs are clear. No pleural effusion or pneumothorax is seen. There is no acute bone abnormality. Postoperative cervical spine fusion noted. Calcified granuloma involves the left lung base. Upper abdominal surgical clips noted. IMPRESSION: No acute cardiopulmonary process. Electronically signed by: Roger Schaefer MD (08/05/2018 7:49 AM) [facility]
== END 2018-08-05 00:50 | disposition home or self-care (01) ==
LOC: ER 22:04
DX: J45.901 Unspecified asthma with (acute) exacerbation (principal); E78.00 Pure hypercholesterolemia, unspecified; I10 Essential (primary) hypertension; Z88.0 Allergy status to penicillin; Z88.5 Allergy status to narcotic agent; Z88.6 Allergy status to analgesic agent
CPT/HCPCS: 36415; 71046; 80053; 83735; 84484; 85025; 93005; 94640; 99284; J7512; J7620

== ENCOUNTER → 2018-08-04 | Outpatient (CLI) | payer OTHER ==
[2018-07-27 10:53] VITALS: BP 106/50
[~2018-08-04] MED LIST changes: +NITR0.4T22 SL; +VENTOLIN HFA18 GM INH
--- NOTE | 2018-08-05 02:40 | PAIN ---
DATE OF SERVICE: 08/04/2018 INITIAL CONSULTATION FOR PAIN CLINIC CHIEF COMPLAINT: Neck and bilateral upper extremity pain. HISTORY OF PRESENT ILLNESS: This is a 53-year-old female who presents with history of pain in the base of the neck and shoulders for many years, ongoing, worse over the past 6 months or so. The patient was recently hospitalized for some chest pain and had a workup with a cervical spine MRI showing multilevel degenerative change; instrumented anterior spinal fusion, interbody fusion at C5-C7; mild left foraminal stenosis at C2-C3; moderate right and mapwyzne-hw-jericm left foraminal and hoxz-in-duvlxsfm central canal stenosis at C3-C4 and severe right foraminal and zfnf-ar-bvbuhmxd central canal stenosis at C4-C5 and mild left foraminal stenosis at C7-T1. The patient reports still significant pain in the base of the neck and shoulders and tingling in the arms and hands. She does not report any obvious loss of motor function, but some fatigability of the upper extremities as fairly common, ongoing over the past few months. The patient reports stabbing pain, stinging, tingling, radiating into the upper extremities, again right essentially equal to left. The patient reports disability rate from 0-10, 10 being the worst at 10 with family and home responsibilities, occupation and sexual behavior; 9 with recreation; 8 with social activities; 6 with self-care and 7 with life support activities. The patient reports it awakens her from sleep at night at least 4 times, does not affect her bowel or bladder control or ability to walk. She has had some injections in the past, which were not particularly helpful by her report. She continues having some trigger point type injections with her primary care physician, which she reports does decrease the pain to a fairly significant extent. The patient reports she has tried physical therapy in the past as well, doing some stretching exercises on her own currently, does not take any specific medications for the pain currently, has had no other modalities at this time. The patient reports again no loss of motor function, but significant fatigability of both the upper extremities, worse with reaching overhead, repetitive motions, lifting items, even driving the car, mostly noticeable in her left arm. PAST MEDICAL HISTORY: Significant for shortness of breath, COPD, avascular necrosis. PREVIOUS SURGERY: Include laparoscopic cholecystectomy, hysterectomy, right knee replacement, previous cervical fusion and lumbar fusion as well. CURRENT MEDICATIONS: Include albuterol inhaler, metoprolol, daily baby aspirin, atorvastatin, lisinopril, and nitroglycerin. ALLERGIES: THE PATIENT IS ALLERGIC TO PENICILLIN, TRAMADOL, CODEINE, AND NAPROXEN. FAMILY HISTORY: Significant for heart disease, cancers and diabetes. SOCIAL HISTORY: The patient does not drink alcohol; does not smoke; does not use any illegal, illicit or recreational drugs. He is single. Lives locally in [place], [place] and reports she is currently on disability from her current pain situation. REVIEW OF SYSTEMS: The patient's review of systems is positive for those items mentioned in history of present illness. All systems reviewed and otherwise negative. It is complete, full and well documented on the patient's chart. PHYSICAL EXAMINATION: VITAL SIGNS: The patient's blood pressure is 126/93, pulse 64, respirations 18, temperature 98.1 degrees Fahrenheit, height 5 feet 3 inches, weight 205 pounds. GENERAL: The patient is awake, alert, oriented, appropriate, very pleasant demeanor. HEENT: Head shows normocephalic, atraumatic. Extraocular movements are intact and symmetrical. Oral cavity: Mucous membranes moist and pink. Dentition is intact. NECK: Shows anterior throat supple without palpable adenopathy noted. Swallow reflex is symmetrical. CHEST: Shows normal on inspection. Breath sounds clear to auscultation bilaterally. HEART: Shows S1, S2 clear. No murmurs auscultated. ABDOMEN: Soft, obese, nontender, nondistended. No palpable organomegaly is noted. No rebound or guarding demonstrated. BACK: Shows spine grossly in the midline. Cervical paraspinous muscle shows symmetrical on inspection, with palpation shows some moderate tenderness with deeper palpation in the inferior aspect of the cervical paraspinous muscles but without radiation. The patient shows good rotational motion of cervical spine, both laterally as well as extension and flexion without significant difficulty. The patient has well-healed surgical scar in the anterior aspect of the right side of the neck. No specific tenderness over the spinous processes. The patient shows again good rotational motion both past 45 degrees right and left lateral, closer to 90 degrees as well as full extension, full forward flexion without significant limitation or pain reported. EXTREMITIES: The patient's upper extremities show deep tendon reflexes at 2+ in the biceps and triceps tendons. Motor exam is strong with supply chain technician strength rated at 5/5 as is bicep and tricep flexion equal. Peripheral pulses are 2+ radial distribution. Upper extremities are warm and dry to touch, equal in color and appearance. Shoulder shrug is strong and intact without loss of strength on resistance and without significant pain reported, it is true with abduction of the shoulder at 90 degrees bilaterally, again without loss of strength on resistance as well. SKIN: Warm and dry, good turgor. No edema. No sores, rashes or bruising throughout. IMPRESSION: A 53-year-old female with: 1. Approximately 1-year history of increasing pain with long-term pain in the base of the neck, shoulders, upper extremities in a radicular fashion. 2. MRI scan of cervical spine as noted. 3. Hypertension. PLAN: Options were discussed with the patient including conservative measures, physical therapy, interventional techniques and she would like to stick with her current regimen of medication management, physical therapies and maintain treatment with her primary physician. We did discuss the possibility of cervical epidural steroid injection. Again, she has had these in the past. We discussed the technique as well as the procedure using description as well as anatomical models to describe the procedure. The patient would like to consider this and wait. If the pain is worse or she decides she would like to pursue these interventional techniques, she will follow up at that time. The patient was encouraged to maintain her physical therapy. I also talked about nutrition and weight loss as well. The patient will follow up on as needed basis at this time. ILANA MENDOZA MD DR: SHANA/sherman JOB#: [id number] / [id number] DAMON Ferguson DO
== END | disposition home or self-care (01) ==
LOC: PNCL 08:10
PROVIDERS: ATTEND Anesthesiology
DX: M54.2 Cervicalgia (principal); M25.511 Pain in right shoulder; M25.512 Pain in left shoulder; R20.2 Paresthesia of skin; I11.0 Hypertensive heart disease with heart failure; I50.32 Chronic diastolic (congestive) heart failure; J44.9 Chronic obstructive pulmonary disease, unspecified; Z90.710 Acquired absence of both cervix and uterus; Z96.651 Presence of right artificial knee joint
CPT/HCPCS: G0463

== ENCOUNTER → 2019-05-27 | Outpatient (CLI) | payer MEDICAID, OTHER ==
[~2019-05-27] MED LIST changes: +REGADENOSON 0.4 MG/5 ML DISP.SYRIN. IV ONE
--- NOTE | 2019-05-27 12:52 | RAD ---
MR#: [id number] Date of Study: 05/27/2019 Ordering Physician: ARISTIDES GREEN, Referring Physician: KALEB MILLER Tech: NIKA Conway, ARRT (R) (N) APPROVED REPORT Test Type: Pharmacological Stress Nurse/Tech: China Lopez R.N. Test Indications: chest pain, CAD Cardiac History: Family history, Hypertension Medications: See Electronic Medical Record Medical History: See Electronic Medical Record Resting ECG: s em Resting Heart Rate: 53 bpm Resting Blood Pressure: 133/71mmHg Pretest Chest Pain: No chest pain Nurse/Tech Notes S1S2, lungs sound clear Consent: The procedure was explained to the patient in lay terms. Informed consent was witnessed. Gregory eout was entered into [employer]. History and Stress Test performed by China Lopez R.N. Pharm. Details Pharmacologic stress testing was performed using 0.4mg per 5ml of regadenoson given intravenously ove r 7-10 seconds. Stress Symptoms Dyspnea POST EXERCISE Reason for Termination: Infusion complete Target HR: 141 Max HR: 137 bpm Max Blood Pressure: 117/61mmHg Blood Pressure response to exercise: Normal blood pressure response during stress. Chest Pain: No. Arrhythmia: No. ST Change: No. INTERPRETATION Stress EKG Conclusion: Baseline EKG showed sinus rhythm. No ischemic changes at peak stress. No arr hythmias. Imaging Protocol IMAGE PROTOCOL: Rest Tc-99m/stress Tc-99m 1 day Rest: Stress: Viability: Radiopharm.Tc99m WjzigfecdHq75b Sestamibi Dseo57vLh 32mCi Img Date 05/27/2019 05/27/2019 Inj-Img [id number]. 60min. Rest Admin Site:IV - Left AntecubitalAdministrator:RT Cristopher (R)(N) Stress Admin Site: IV - Left AntecubitalAdministrator: RT Cristopher (R)(N) STRESS DATA End Diast. Vol.83.0mlAv. Heart Rate66.0bpm End Syst. Vol.24.0mlCO Index BSA0.0L/min Myocardial Qgdr806.0gEject. Uiktuygw80.0% Stress Rates Pk. Fill Rate2.59EDV/secLVtime Pk. Fill 266.72msec Pk. Empty Rate3.75ESV/secLVtime Pk. Yaayh939.56msec 1/3 Pk. Fill1.45EDV/sec Stress Scores Regional WT0.00Summed WT1.00 Regional WM0.00Summed WM3.00 Study quality was good. Left Ventricular size was Normal at Rest and Stress. Lung uptake was . Left Ventricular ejection fraction is 71%. The rest and stress images show normal perfusion, normal contraction and thickening. LV Perf. Quant 17 Seg. SSS1.00 17 Seg. SRS0.00 17 Seg. SDS1.00 Stress Defect Extent (% LAD)5.00Rest Defect Extent (% LAD)0.00Rev. Defect Extent (% LAD)3.10 Stress Defect Extent (% LCX) 0.00Rest Defect Extent (% LCX)10.00Rev. Defect Extent (% LCX)0.00 Stress Defect Extent (% RCA)0.00Rest Defect Extent (% RCA)0.00Rev. Defect Extent (% RCA)0.00 Stress Defect Extent (% JOELLE)2.40Rest Defect Extent (% JOELLE)2.20Rev. Defect Extent (% JOELLE)1.10 Conclusion 1. Regadenoson cardioisotope stress test did not show any evidence of ischemia or infarct. 2. Normal left ventricular systolic function with ejection fraction calculated at 71%. 3. Low risk for cardiac events. Signed by : Aristides Green, Electronically Approved : 05/27/2019 12:52:03
== END | disposition home or self-care (01) ==
LOC: NM 09:06
PROVIDERS: ATTEND Internal Medicine Cardiovascular Disease
DX: I25.10 Atherosclerotic heart disease of native coronary artery without angina pectoris (principal); R06.09 Other forms of dyspnea; R07.9 Chest pain, unspecified; I10 Essential (primary) hypertension
CPT/HCPCS: 78452; 93017; A9500; J2785

== ENCOUNTER → 2019-12-14 | Outpatient (CLI) | payer OTHER, MEDICAID ==
[~2019-12-14] MED LIST changes: -REGADENOSON 0.4 MG/5 ML DISP.SYRIN. IV ONE
== END | disposition home or self-care (01) ==
LOC: LAB 12:31
PROVIDERS: ATTEND Internal Medicine Cardiovascular Disease
DX: Z01.818 Encounter for other preprocedural examination (principal); Z11.59 Encounter for screening for other viral diseases; R07.9 Chest pain, unspecified
CPT/HCPCS: U0003-CS

== ENCOUNTER 2019-12-17 08:03 | Outpatient (CLI) | payer OTHER, MEDICAID ==
[~2019-12-17] VITALS: Ht 160 cm; Wt 91.2 kg
[2019-12-17] VITALS (12 sets, daily range): BP systolic 119–168; BP diastolic 68–93
[2019-12-17] MEDS ORDERED: LOSA100T14 PO (08:32)
[2019-12-17] MEDS ORDERED: MONT10TA49 PO (08:32)
[2019-12-17 08:38] LABS: HEMATOCRIT 39.5 % (36.0-47.0); HEMOGLOBIN 13.4 g/dL (12.0-15.5); RED BLOOD COUNT 4.67 x10^6/uL (3.50-5.40); RED CELL DISTRIBUTION WIDTH 14.6 % (11.5-14.5); WHITE BLOOD COUNT 6.4 x10^3/uL (4.0-11.0)
[2019-12-17 08:44] LABS: CALCIUM 8.7 mg/dL (8.5-10.1); CREATININE 0.9 mg/dL (0.6-1.0); GFR 65.2
[2019-12-17 08:48] LABS: PROTHROMBIN TIME PATIENT 11.5 SEC (11.7-14.0)
[2019-12-17] MEDS ORDERED: LIDOCAINE 1% PF 2 ML VIAL. ONE (09:02)
[2019-12-17] MEDS ORDERED: IOHEXOL 300 MG/ML 100ML VIAL. ONE ×2 (09:02→09:57)
[2019-12-17] MEDS ORDERED: fentaNYL PF VIAL 100 MCG/2 ML VIAL ONE (09:15)
[2019-12-17] MEDS ORDERED: HEPARIN for IV BOLUS 10,000 UNIT/10 ML VIAL. ONE (09:15)
[2019-12-17] MEDS ORDERED: MIDAZOLAM HCL/PF 2 MG/2 ML VIAL. ONE (09:15)
[2019-12-17] MEDS ORDERED: VERAPAMIL 5 MG/2 ML VIAL. ONE (09:15)
[2019-12-17] MEDS ORDERED: NITROGLYCERIN 200 MCG/2 ML SYRINGE FOR CATH/VASC LAB. ONE (09:15)
[2019-12-17] MEDS ORDERED: fentaNYL PF VIAL 100 MCG/2 ML VIAL IV ONE (09:30)
[2019-12-17] MEDS ORDERED: NITROGLYCERIN 200 MCG/2 ML SYRINGE FOR CATH/VASC LAB. IART ONE (09:30)
[2019-12-17] MEDS ORDERED: IOHEXOL 300 MG/ML 100ML VIAL. IART ONE (09:30)
[2019-12-17] MEDS ORDERED: HEPARIN for IV BOLUS 10,000 UNIT/10 ML VIAL. IART ONE (09:30)
[2019-12-17] MEDS ORDERED: VERAPAMIL 5 MG/2 ML VIAL. IART ONE (09:30)
[2019-12-17] MEDS ORDERED: CONTRAST GIVEN. MC PRN (09:30)
[2019-12-17] MEDS ORDERED: LIDOCAINE 1% PF 2 ML VIAL. INJ ONE (09:30)
[2019-12-17] MEDS ORDERED: MIDAZOLAM HCL/PF 2 MG/2 ML VIAL. IV ONE (09:30)
[2019-12-17] MEDS ORDERED: HEPARIN for IV BOLUS 10,000 UNIT/10 ML VIAL. IV ONE (10:00)
[2019-12-17] MEDS ORDERED: IV 1/2 NORMAL SALINE 1,000 ML IV SCH (10:15)
--- NOTE | 2019-12-17 10:15 | PDOC ---
MODERATE SEDATION ASSESSMENT RISKS/ALTERNATIVES Risks/Alternatives Risks and alternatives of this type of sedation and procedure discussed with: RISK/ALTERNATIVES: Patient H & P ON CHART H & P H & P on chart and reviewed for co-morbid conditions and appropriate labs. H&P ON CHART: Yes STATUS PREG STATUS ASSESSED: N/A MEDS/ALLERGIES REVIEWED Meds/Allergies Reviewed Medications and Allergies including time and route of recently administered narcotics and sedatives. MEDS/ALLERGIES REVIEWED: Yes ASA RATING ASA RATING: II AIRWAY ASSESSMENT Airway Assessment Airway patency, oral function limitations, presence of caps, crowns, dentures, partials, and ability to extend neck assessed. AIRWAY ASSESSMENT: Yes MALLAMPATI SCORE MALLAMPATI SCORE: II PRE-SEDATION ASSESSMENT PRE-SEDATION ASSESSMENT: Yes ARISTIDES GREEN MD Dec 17, 2019 10:15
--- NOTE | 2019-12-17 10:24 | CARD ---
MR#: [id number] Date of Study: 12/17/2019 Ordering Physician: ARISTIDES GREEN, Referring Physician: ARISTIDES GREEN Tech: RILEY HANSEN RTR APPROVED REPORT Technologist: RILEY HANSEN RTR Nurse: Seema Denton RN Procedure(s) performed: MODERATE SEDATION TIME: 30 MIN FLUORO TIME: 7.1 MIN 1. Left heart catheterization, selective coronary angiography via right transradial approach 2. Instant wave free ratio (IFR) measurement to right coronary artery stenosis DOSE: 60.9 GYCM2 CONTRAST: 81CC OMNI 300 INDICATION The indication(s) include : unstable angina . [facility] Clinical Frailty Scale [facility] Clinical Frailty Scale: Mildly Frail Heart Failure Heart Failure: No PROCEDURE NARRATIVE After explaining the risks, benefits and alternative options, informed consent was obtained from billie ent. Patient was brought to the cardiac Referral Manager and right wrist was prepped and draped in the usual fashion after confirming a positive modified Wilton's test. Arterial access was obtained in the righ t radial artery and a 6 Ivorian sheath was inserted. 6 Ivorian Yasir catheter was used to perform reynaldo ective angiography of the left and right coronary arteries. LVEDP and transaortic gradients were mj sured. Since patient was found to have angiographically borderline significant stenosis involving th e right coronary artery, a decision was made to perform physiologic assessment using instant wave suzette e ratio measurement (IFR). The right coronary artery was engaged with a 6 Ivorian JR4 guide catheter and the stenosis in the midsegment was crossed with a [employer] Verrata pressure wire. IFR measurement was made there was insignificant at 0.99. Hence no interventions were performed on this stenosis. Patient tolerated the procedure well. Hemostasis was achieved using TR band. There were no immediat e complications. FINDINGS 1. Hemodynamics: Left ventricular end-diastolic pressure of 18 mmHg. No pullback gradient across th e aortic valve. 2. Coronary angiography: a. The left main coronary artery arose from the left sinus of Valsalva, gave rise to the left anteri or descending and left circumflex arteries and did not show any significant stenosis. b. The left anterior descending artery did not show any significant stenosis. c. The left circumflex artery did not show any significant stenosis. d. The right coronary artery was a large and dominant vessel arising from the right sinus of Valsalv a that showed 60% stenosis involving the midsegment, physiologically insignificant based on IFR measu rement of 0.99. Conclusion Single-vessel coronary artery disease, 60% stenosis involving right coronary artery, proven to be phy siologically insignificant with IFR measurement of 0.99 Recommendations Medical Therapy Signed by : Aristides Green, Electronically Approved : 12/17/2019 10:23:53
--- NOTE | 2019-12-17 13:09 | NUR ---
Discharge Note: MAREK ARGUETA Discharge instructions and discharge home medications reviewed with Patient and a copy given. All questions have been answered and understanding verbalized. Patient ate lunch with no issues. The following instructions and handouts were given: Moderate sedation and radial site care. Discontinued lines and drains: Left wrist/forearm PIV, dressing clean dry intact. Patient discharged to home with via wheelchair to private vehicle.
== END 2019-12-17 13:00 | disposition home or self-care (01) ==
LOC: CCL 08:03
PROVIDERS: ATTEND Internal Medicine Cardiovascular Disease
DX: I25.118 Atherosclerotic heart disease of native coronary artery with other forms of angina pectoris (principal); Z88.5 Allergy status to narcotic agent; Z88.0 Allergy status to penicillin; Z88.8 Allergy status to other drugs, medicaments and biological substances; Z79.899 Other long term (current) drug therapy
CPT/HCPCS: 36415; 80048; 85027; 85610; 93458; 93571; 99152; 99153; C1769; C1887; C1892; J1644; J2250; J3010; J3490; Q9967

== ENCOUNTER 2020-06-12 15:35 | Emergency (ER) | payer OTHER, MEDICAID ==
[2019-12-17 12:40] VITALS: BP 119/71
[~2020-06-12 15:35] MED LIST changes: +LOSA100T14 PO; +MONT10TA49 PO
[2020-06-12 17:19] LABS: BASO # 0.1 x10^3/uL (0.0-0.2); BASO % 1 % (0-3); EOS # 0.2 x10^3/uL (0.0-0.7); EOS % 2 % (0-3); HEMATOCRIT 38.8 % (36.0-47.0); HEMOGLOBIN 12.9 g/dL (12.0-15.5); LYMPH # 1.1 x10^3/uL (1.0-4.8); LYMPH % 16 % (24-48); MEAN CORPUSCULAR HEMOGLOBIN 27 pg (25-35); MEAN CORPUSCULAR HGB CONC 33 g/dL (31-37); MEAN CORPUSCULAR VOLUME 82 fL (79-100); MONO # 0.5 x10^3/uL (0.0-1.1); MONO % 7 % (0-9); NEUT # 5.1 x10^3/uL (1.8-7.7); NEUT % 74 % (31-73); PLATELET COUNT 275 x10^3/uL (140-400); RED BLOOD COUNT 4.74 x10^6/uL (3.50-5.40); RED CELL DISTRIBUTION WIDTH 15.7 % (11.5-14.5); WHITE BLOOD COUNT 6.9 x10^3/uL (4.0-11.0)
[2020-06-12 17:24] LABS: CALCIUM 9.3 mg/dL (8.5-10.1); CREATININE 0.8 mg/dL (0.6-1.0); GFR 74.7; POTASSIUM 3.9 mmol/L (3.5-5.1)
[2020-06-12 17:30] LABS: ALBUMIN 3.6 g/dL (3.4-5.0); DIRECT BILIRUBIN 0.1 mg/dL (0.0-0.2); TOTAL BILIRUBIN 0.4 mg/dL (0.2-1.0); TOTAL PROTEIN 7.5 g/dL (6.4-8.2)
[2020-06-12] MEDS ORDERED: IOHEXOL 350 MG/ML 100 ML VIAL. IV ONE (17:45)
[2020-06-12] MEDS ORDERED: CONTRAST GIVEN. MC PRN (17:45)
--- NOTE | 2020-06-12 18:12 | RAD ---
PQRS Compliance Statement: One or more of the following individualized dose reduction techniques were utilized for this examinat ion: 1. Automated exposure control 2. Adjustment of the mA and/or kV according to patient size 3. Use of iterative reconstruction technique CT CHEST WITH CONTRAST, PULMONARY ANGIOGRAM History: Reason: SOB, CHEST PAIN, VOMITING BLOOD Comparison: None. Technique: Helical CT of the chest was performed after the administration of 100 cc of Omnipaque 350 intravenous contrast according to PE protocol. Axial and coronal reconstructions were obtained. 3- D MIP images were constructed to better evaluate the pulmonary arteries. Findings: Pulmonary arteries are adequately opacified. There is no evidence of pulmonary embolism. There is no thoracic aortic dissection. There are subcentimeter bilateral hilar lymph nodes. No media stinal adenopathy. There are benign-appearing bilateral axillary lymph nodes. The cardiac size is nor mal, no pericardial effusion. No obvious abnormality of the esophagus. There is no pneumomediastinum. The central airways are patent. There is bilateral dependent atelectasis. Calcified granuloma left lo wer lobe. There is a small bulla in the superior segment of the right lower lobe. No lung consolidati on. No pleural abnormality. Cholecystectomy. Thoracic spine alignment is maintained. ACDF of lower cervical spine. IMPRESSION: 1. There is no CT evidence of pulmonary embolus. 2. Bilateral dependent atelectasis. Electronically signed by: Sonny Puente MD (06/12/2020 6:10 PM) [facility]
--- NOTE | 2020-06-15 04:34 | EKG ---
[facility] [address] [place] [address] Test Date: 2020-06-12 Test Time: 16:47:09 Pat Name: MAREK ARGUETA Department: Room: Gender: F Foot Roentgenologist: : 1965 Requested By: MT REID Order Number: [id number] Reading MD: Measurements Intervals [place] Rate: 61 P: -3 ID: [id number] QRS: -7 QRSD: 86 T: 7 QT: 424 QTc: 428 Interpretive Statements SINUS RHYTHM LEFTWARD AXIS R-S TRANSITION ZONE IN V LEADS DISPLACED TO THE LEFT OTHERWISE NORMAL ECG RI6.02 No previous ECG available for comparison
== END 2020-06-12 19:30 | disposition home or self-care (01) ==
LOC: ER 15:35
DX: M54.5 Low back pain (principal); M25.551 Pain in right hip; M79.604 Pain in right leg
CPT/HCPCS: 36415; 71275; 80048; 80076; 83690; 83880; 84484; 85025; 85610; 85730; 99285; Q9967; 93005

== ENCOUNTER → 2020-09-12 | Outpatient (CLI) | payer OTHER, MEDICAID ==
[2019-12-17 12:40] VITALS: BP 119/71
--- NOTE | 2020-09-12 11:43 | KCIC ---
STUDY: MRI of the left shoulder without contrast INDICATION: Left shoulder pain. COMPARISON: No prior MRI. TECHNIQUE: Multiplanar MR imaging of the left shoulder performed without the use of intravenous or in tra-articular contrast. FINDINGS: Repeat sequence acquisition due to patient motion. AC joint: Mild hypertrophic AC joint arthrosis. Keel-type subacromial traction spur at the coracoacro mial ligament attachment. Small amount of fluid within the subacromial subdeltoid bursa. Rotator cuff: Generalized thinning of the supraspinatus tendon along the critical zone such as on dorothea ge 7 series 7. Superimposed articular sided/interstitial tearing of the supraspinatus at the footprin t best seen at the mid to posterior aspect. In combination with bursal sided fraying there are areas of intermediate to high-grade loss of tendon substance estimated with up to 60-70% cross-sectional in volvement. Tendon thinning extends involve the anterior infraspinatus. The teres minor is intact as i s the subscapularis. Maintained rotator cuff muscular bulk. Labrum: Degenerative tearing of the posterior/superior labrum. No well delineated tear is seen at the biceps-labral anchor noting motion. Long head biceps tendon: Tendinosis and possible mild low-grade tearing/fraying at the groove entranc e. Cartilage: Limited evaluation due to motion. There is likely partial thickness chondrosis involving b oth the humeral head and glenoid. Bones: Degenerative spurring of the greater tuberosity at the supraspinatus more so than infraspinatu s insertions. Faint degenerative ridging along a portion of the glenoid and medial humeral head. No f racture or focally aggressive marrow signal abnormality. Miscellaneous: Trace shoulder joint effusion with preferential distribution of fluid within the subsc apularis recess. Unremarkable axillary soft tissues. Impression: 1. Globally thin and heterogeneous supraspinatus tendon. Articular/bursal sided fraying in concert w ith several small areas of tearing collectively results in intermediate to high-grade thinning estima markell with 60 to 70% cross-sectional involvement. The greatest degree of thinning involves the critical zone noting the presence of impingement by a keel-type subacromial spur. Mild hypertrophic AC joint arthrosis as well. Rotator cuff muscular bulk is maintained. 2. Degenerative tearing at the posterior/superior labrum. There may be mild partial thickness tearin g of the long head biceps at the groove entrance on a background of mild tendinosis. 3. Presumed partial thickness humeral head and glenoid chondrosis noting close evaluation is limited by motion. Electronically signed by: DELONTE DENNIS MD (09/12/2020 11:40 AM) [id number]
== END ==
LOC: KCIC MRI 08:06
PROVIDERS: ATTEND Family Medicine
DX: M19.012 Primary osteoarthritis, left shoulder (principal); M76.892 Other specified enthesopathies of left lower limb, excluding foot
CPT/HCPCS: 73221

== ENCOUNTER → 2020-10-31 | Outpatient (CLI) | payer OTHER, MEDICAID ==
[2019-12-17 12:40] VITALS: BP 119/71
== END ==
LOC: LAB 09:32
PROVIDERS: ATTEND Orthopaedic Surgery
DX: U07.1 COVID-19 (principal)
CPT/HCPCS: U0003; U0005

== ENCOUNTER 2020-12-19 08:08 | Day surgery (SDC) | payer OTHER, MEDICAID ==
[~2020-12-19] VITALS: Ht 160 cm; Wt 98.6 kg
[~2020-12-19 08:08] MED LIST changes: +DEXAMETHASONE SOD PHOS 4 MG/ML VIAL ONE; +GLYCOPYRROLATE 1 MG/5 ML VIAL. ONE; +HYDROmorphone 2 MG/ML VIAL IVP PRN; +IV RINGERS,LACTATED 1000ML 1,000 ML IV SCH; +LIDOCAINE 1% PF 5 ML VIAL. ONE; +MORPHINE SULFATE 2 MG/ML INJ. IVP PRN; +NEOSTIGMINE METHYLSULFATE 5 MG/5 ML SYRINGE. ONE; +ONDANSETRON PF 4 MG/2 ML VIAL. ONE; +PHENYLEPHRINE in 0.9% NACL PF 1 MG/10 ML SYRINGE. IV ONE; +PROCHLORPERAZINE 10 MG/2 ML VIAL. IVP PRN; +PROPOFOL 10 MG/ML (20ML) VIAL. IV ONE; +ROCURONIUM 50 MG/5 ML VIAL. ONE; +ePHEDrine PF IN SALINE 50 MG/10 ML SYRINGE. IV ONE; +fentaNYL PF VIAL 100 MCG/2 ML VIAL IVP PRN; +fentaNYL PF VIAL 100 MCG/2 ML VIAL ONE
[2020-12-19 08:33] VITALS: BP 128/57
[2020-12-19] MEDS ORDERED: OXYC1TAB22 PO (08:36)
[2020-12-19] MEDS ORDERED: ROPIVacaine 0.5% PF 20 ML VIAL. ONE ×2 (08:51→12:06)
[2020-12-19] MEDS ORDERED: EPINEPHrine VIAL 30 MG/30 ML VIAL ONE (08:56)
--- NOTE | 2020-12-19 13:12 | DISCH ---
DISCHARGE INSTRUCTIONS Condition on Discharge Condition on Discharge: Stable Activity After Discharge Activity Instructions for Disc: Activity as tolerated (Wear sling for comfort and may remove for gentle stretching and pendulum exercises as well as physical therapy) Lifting Instructions after Dis: No heavy lifting, No pulling or pushing, Do not lift >10 pounds Exercise Instruction after Dis: Progress as tolerated Driving Instructions after Dis: Do not drive today Weight Bearing Status after Di: As tolerated Diet after Discharge Diet after Discharge: Cardiac Wound Incision Care Wound/Incision Care: Ice to area for comfort, Change dressing (May remove d ressing in 2 days may then shower no soaking until sutures removed) Community/Resources/Services Services at Discharge: PT EVALUATE & TREAT (Active and passive range of motion as tolerated advancing to strengthening, symptomatic restrictions only) Contacting the DRL[facility] after DC Call your doctor for: Concerns you may have Follow-Up Follow up with: Dr. Salgado or Trudy 7 to 10 days SHIVANI SALGADO MD Dec 19, 2020 13:12
[2020-12-19] MEDS ORDERED: fentaNYL PF VIAL 100 MCG/2 ML VIAL ONE (13:38)
[2020-12-19] MEDS ORDERED: PROCHLORPERAZINE 10 MG/2 ML VIAL. ONE (13:39)
[2020-12-19] MEDS ORDERED: oxyCODONE/APAP 10/325 1 TAB TABLET ONE (13:53)
[2020-12-19] MEDS: fentaNYL PF VIAL 100 MCG/2 ML VIAL IVP PRN ×2 (13:57→14:05)
[2020-12-19] MEDS ORDERED: oxyCODONE/APAP 10/325 1 TAB TABLET PO ONE (14:00)
[2020-12-19 14:19] VITALS: BP 130/50
--- NOTE | 2020-12-19 17:20 | PDOC4 ---
Operative Note Operative Note Date of surgery: 12/19/2020 Preoperative diagnosis: Left shoulder rotator cuff tear impingement bicipital irritation and acromioclavicular joint arthralgia Postoperative diagnosis: Partial-thickness tear of supraspinatus insertion, superior labral fraying with intact biceps anchor, severe subacromial impingement with large anterior acromial spur and acromioclavicular joint degenerative joint disease Operative procedure: Left shoulder arthroscopy, extensive debridement of partial-thickness rotator cuff tear and type I SLAP tear, distal clavicle excision and subacromial decompression Surgeon: Damian Chicken Picker: Nori ramos assist Anesthesia: General plus scalene block Estimated blood loss: 10 cc Complications: None Operative indications: Please see my preoperative clinic note for detailed operative indications and note that we covered the expected distal clavicle excision for her symptomatic acromioclavicular joint pain possibility of a rotator cuff repair and potential biceps tenodesis depending on any compromised versus debridement and addressing any other pathologic conditions. We talked about risks benefits postoperative course including the possibility of continued pain infection nerve or blood vessel damage medical or other anesthetic complications among others all her questions were answered she wishes to proceed with surgical evaluation and treatment Operative text: Patient was identified procedure verified patient placed in the supine position on the operating table. After adequate amounts of general anesthesia plus a pre-existing scalene block she was placed decubitus left side up all bony promises were well-padded and a posterior portal was established. Anterior portal established under spinal needle localization with direct vision and the shoulder joint was systematically examined. She was noted to have significant superior labral fraying which was trimmed back to stable tissue with the arthroscopic bipolar electrocautery and the biceps anchor was otherwise noted to be intact and the biceps itself found to be free of any subluxation fraying or compromise as it was pulled into the joint. She did have a partial- thickness tear undersurface of the supraspinatus insertion but otherwise normal bare area of the humerus and capsuloligamentous structures were normal and the subscapularis insertion likewise intact. Subacromial space was entered and a lateral portal was established she had severe irritation in subacromial bursa a brittany and bursa was cleared to allow visualization. Rotator cuff showed some evidence of partial thickness bursal tear but on probing really did not require repair after the debridement. She did however have a very significant anterior acromial spur which was trimmed back to a type I acromion using cutting block technique with the arthroscopic bur. Likewise her symptomatic acromioclavicular joint degenerative change was treated with distal clavicle excision to 1 cm preserving the overlying joint capsule for stability. Any bony fragments were removed with the arthroscopic shaver and the rotator cuff integrity was noted intact in all degrees of internal/external rotation. The joint was then drained of arthroscopic fluid portals were closed with nylon suture. Patient was returned to recovery room in stable condition having tolerated procedure well. Nori staples was present for the procedure assisted in patient prepping draping retraction closure and dressings SHIVANI GARCIA MD Dec 19, 2020 17:20
== END 2020-12-19 14:53 | disposition home or self-care (01) ==
LOC: SURG 08:08
PROVIDERS: ATTEND Orthopaedic Surgery
DX: S43.432A Superior glenoid labrum lesion of left shoulder, initial encounter (principal); M75.102 Unspecified rotator cuff tear or rupture of left shoulder, not specified as traumatic; M25.512 Pain in left shoulder; I25.10 Atherosclerotic heart disease of native coronary artery without angina pectoris; I10 Essential (primary) hypertension; E78.00 Pure hypercholesterolemia, unspecified; K21.9 Gastro-esophageal reflux disease without esophagitis; J45.909 Unspecified asthma, uncomplicated; E66.9 Obesity, unspecified; Z90.710 Acquired absence of both cervix and uterus; Z98.890 Other specified postprocedural states; Z79.899 Other long term (current) drug therapy; Z88.0 Allergy status to penicillin; Z88.1 Allergy status to other antibiotic agents; Z88.2 Allergy status to sulfonamides; Z88.8 Allergy status to other drugs, medicaments and biological substances; X58.XXXA Exposure to other specified factors, initial encounter; Y93.89 Activity, other specified; Y92.89 Other specified places as the place of occurrence of the external cause; Y99.8 Other external cause status
CPT/HCPCS: 29822; 29824; 29827; 64415; A4565; A4930; J0171; J0690; J0780; J1100; J2405; J2704; J2710; J2795; J3010; J3490; A4223; J2370

== ENCOUNTER → 2021-07-17 | Outpatient (CLI) | payer OTHER, MEDICAID ==
[~2021-07-17] MED LIST changes: -DEXAMETHASONE SOD PHOS 4 MG/ML VIAL ONE; +GADOTERATE 5 MMOL/10ML VIAL. INT ART ONE; -GLYCOPYRROLATE 1 MG/5 ML VIAL. ONE; -HYDROmorphone 2 MG/ML VIAL IVP PRN; +IOHEXOL 300 MG/ML 50 ML VIAL. INT ART ONE; -IV RINGERS,LACTATED 1000ML 1,000 ML IV SCH; +LIDOCAINE 1% Multi-Dose 20 ML VIAL. ID ONE; -LIDOCAINE 1% PF 5 ML VIAL. ONE; -MORPHINE SULFATE 2 MG/ML INJ. IVP PRN; -NEOSTIGMINE METHYLSULFATE 5 MG/5 ML SYRINGE. ONE; -ONDANSETRON PF 4 MG/2 ML VIAL. ONE; +OXYC1TAB22 PO; -PHENYLEPHRINE in 0.9% NACL PF 1 MG/10 ML SYRINGE. IV ONE; -PROCHLORPERAZINE 10 MG/2 ML VIAL. IVP PRN; -PROPOFOL 10 MG/ML (20ML) VIAL. IV ONE; -ROCURONIUM 50 MG/5 ML VIAL. ONE; -ePHEDrine PF IN SALINE 50 MG/10 ML SYRINGE. IV ONE; -fentaNYL PF VIAL 100 MCG/2 ML VIAL IVP PRN; -fentaNYL PF VIAL 100 MCG/2 ML VIAL ONE
--- NOTE | 2021-07-17 16:38 | KCIC ---
EXAM: Left shoulder injection WITH Fluoroscopic guidance DATE: 07/17/2021 1:00 PM CLINICAL HISTORY: Reason: Left shoulder pain, previous shoulder muscle surgery 12/16. Shoulder pain, d ecreased ROM, no relief from surgery. COMPARISON: None pertinent TECHNIQUE: The patient was informed of the indications and alternatives for this procedure as well as risks and benefits. No immediate contraindication identified. The patient provided informed, written consent. Laterality was confirmed by the entire team following a time out. Following initial Left shoulder localization, a suitable area was sterilely prepped and draped. Local anesthesia was administered with 1% xylocaine. With intermittent fluoroscopic observation, a 22-gaug e spinal needle was advanced into the Left shoulder sheath/capsule with confirmation of intra-synovia l position with infusion of less than 1 cc iodinated contrast. Subsequent infusion 12 cc solution con taining 10 cc saline, 5 cc lidocaine 1%, 5 cc Isovue and 0.1 cc gadolinium . Hemostasis with local pr essure. Local clinical exam negative for immediate complication. Patient informed re local potential signs or symptoms that may indicate need to return to ER/Ordering physician for further evaluation. Patient informed re precautionary measures after intra-synovial in jection of anesthetic.. Patient expressed understanding. Performing Physicians: Dr. Yvette Pickens Blood Loss: 0 cc Total Fluoroscopy time: 11 seconds Total images taken: 2 IMPRESSION: Successful intra-synovial injection Left shoulder with gadolinium contrast pre-MRI per clinical reque st. Electronically signed by: Avi Pickens MD (07/17/2021 4:36 PM) [id number]
--- NOTE | 2021-07-18 10:34 | KCIC ---
EXAM: MRI arthrogram left shoulder DATE: 07/17/2021 2:30 PM COMPARISON: Apr 16, 2021 12:00:00 AM INDICATION: Left shoulder pain, previous shoulder muscle surgery 12/16. History: Shoulder pain, decr eased ROM, no relief from surgery. TECHNIQUE: Multiplanar, multisequence MRI arthrogram of the left shoulder was performed following the administration of intra-articular gadolinium contrast. FINDINGS: Iatrogenic distention of the left glenohumeral joint with gadolinium contrast. Mild subacromial-subde ltoid bursal edema, bursitis. AC joint is congruent. Type I acromion. No os acromiale. There is a high-grade partial/near full-thickness tear of the posterior supraspinatus and infraspinat us tendon measuring approximately 2.6 cm in AP dimension. Associated heterogeneous signal suggests in terspersed scar tissue. Rotator cuff muscle signal and bulk is normal without fatty atrophy. Mild increased signal within the intra-articular long head biceps tendon, tendinosis. No discrete labral tear. No acute fracture or osteonecrosis. Articular cartilage is grossly preserved . IMPRESSION: 1. High-grade partial/near full-thickness tear of the supraspinatus and infraspinatus tendon measuri ng 2.6 cm in AP dimension with suspected interspersed scar tissue. 2. Mild subacromial-subdeltoid bursitis without gadolinium characteristics. 3. Mild increased signal within the intra-articular long head biceps tendon, tendinosis. Electronically signed by: Avi Pickens MD (07/18/2021 10:32 AM) [id number]
== END | disposition home or self-care (01) ==
LOC: KCIC 12:31
PROVIDERS: ATTEND Orthopaedic Surgery
DX: M25.512 Pain in left shoulder (principal); M75.82 Other shoulder lesions, left shoulder; I25.10 Atherosclerotic heart disease of native coronary artery without angina pectoris; I10 Essential (primary) hypertension; E78.00 Pure hypercholesterolemia, unspecified; J45.909 Unspecified asthma, uncomplicated; E66.9 Obesity, unspecified; K21.9 Gastro-esophageal reflux disease without esophagitis; Z90.710 Acquired absence of both cervix and uterus; Z98.890 Other specified postprocedural states; Z79.899 Other long term (current) drug therapy; Z88.0 Allergy status to penicillin; Z88.5 Allergy status to narcotic agent; Z88.8 Allergy status to other drugs, medicaments and biological substances
CPT/HCPCS: 23350; 73222; 77002; A9575; J3490; Q9967

== ENCOUNTER → 2021-08-06 | Outpatient (CLI) | payer OTHER, MEDICAID ==
[~2021-08-06] MED LIST changes: +ACET500T68 PO; +ESCITALOPRAM OX10 MG PO; -GADOTERATE 5 MMOL/10ML VIAL. INT ART ONE; -IOHEXOL 300 MG/ML 50 ML VIAL. INT ART ONE; -LIDOCAINE 1% Multi-Dose 20 ML VIAL. ID ONE; +OXYC1TAB15 PO
== END ==
LOC: LAB 10:22
PROVIDERS: ATTEND Orthopaedic Surgery
DX: Z01.812 Encounter for preprocedural laboratory examination (principal); Z20.822 Contact with and (suspected) exposure to COVID-19
CPT/HCPCS: U0003

== ENCOUNTER 2021-08-08 05:40 | Day surgery (SDC) | payer OTHER, MEDICAID ==
[~2021-08-08] VITALS: Ht 160 cm; Wt 103.0 kg
[~2021-08-08 05:40] MED LIST changes: -OXYC1TAB15 PO
[2021-08-08] MEDS ORDERED: HYDROmorphone 2 MG/ML INJ. IVP PRN (06:00)
[2021-08-08] MEDS ORDERED: CLINDAMYCIN 900MG PREMIX 50 ML IV PRN (06:00)
[2021-08-08] MEDS ORDERED: PROCHLORPERAZINE 10 MG/2 ML VIAL. IVP PRN (06:00)
[2021-08-08] MEDS ORDERED: fentaNYL PF VIAL 100 MCG/2 ML VIAL IVP PRN ×2 (06:00)
[2021-08-08] MEDS ORDERED: MORPHINE SULFATE 2 MG/ML INJ. IVP PRN (06:00)
[2021-08-08] MEDS ORDERED: IV RINGERS,LACTATED 1000ML 1,000 ML IV SCH (06:00)
[2021-08-08 06:18] VITALS: BP 150/71
[2021-08-08] MEDS ORDERED: DEXAMETHASONE SOD PHOS 4 MG/ML VIAL ONE ×2 (06:49→07:10)
[2021-08-08] MEDS ORDERED: ONDANSETRON PF 4 MG/2 ML VIAL. ONE (06:49)
[2021-08-08] MEDS ORDERED: PHENYLEPHRINE in 0.9% NACL PF 1 MG/10 ML SYRINGE. IV ONE (06:49)
[2021-08-08] MEDS ORDERED: SEVOFLURANE 61 TO 120 MINUTES. IH ONE (06:49)
[2021-08-08] MEDS ORDERED: ROCURONIUM 50 MG/5 ML VIAL. ONE (06:49)
[2021-08-08] MEDS ORDERED: LIDOCAINE 2% PF 5 ML VIAL. ONE ×2 (06:49→07:10)
[2021-08-08] MEDS ORDERED: PROPOFOL 10 MG/ML (20ML) VIAL. IV ONE (06:49)
[2021-08-08] MEDS ORDERED: VECURONIUM BOLUS 10 MG VIAL. IV ONE (06:55)
[2021-08-08] MEDS ORDERED: EPINEPHrine 1 MG/ML VIAL ONE (07:10)
[2021-08-08] MEDS ORDERED: BUPIVACAINE MPF 0.5% 30 ML VIAL. ONE (07:10)
[2021-08-08] MEDS ORDERED: EPINEPHrine VIAL 30 MG/30 ML VIAL ONE (07:11)
[2021-08-08] MEDS ORDERED: MIDAZOLAM HCL/PF 2 MG/2 ML VIAL. IV ONE (07:30)
[2021-08-08] MEDS ORDERED: fentaNYL PF VIAL 100 MCG/2 ML VIAL IVP ONE (07:30)
[2021-08-08] MEDS ORDERED: NEOSTIGMINE METHYLSULFATE 5 MG/5 ML SYRINGE. ONE (07:57)
[2021-08-08] MEDS ORDERED: GLYCOPYRROLATE 1 MG/5 ML VIAL. ONE (07:57)
[2021-08-08] MEDS ORDERED: PHENYLEPHRINE 10 MG/ML VIAL. ONE ×2 (08:13→08:14)
--- NOTE | 2021-08-08 08:33 | PDOC4 ---
OPERATIVE NOTE Date: Date: Aug 08, 2021 Pre-Op Diagnosis: Partial rotator cuff tear impingement left shoulder Post-Op Diagnosis: Same Procedure Performed: Left shoulder arthroscopy subacromial decompression Surgeon: Peterson Anesthesia Type: General Blood Loss: 20 cc Specimans Obtained: None Findings: See dictation Complications: None CRYS VALE Jr. DO Aug 08, 2021 08:33
[2021-08-08] MEDS ORDERED: OXYC1TAB15 PO (08:36)
--- NOTE | 2021-08-08 08:54 | DISCH ---
DISCHARGE INSTRUCTIONS Condition on Discharge Condition on Discharge: Stable Activity After Discharge Activity Instructions for Disc: Activity as tolerated, Avoid exertion Lifting Instructions after Dis: No heavy lifting, No pulling or pushing, Do not lift >10 pounds Exercise Instruction after Dis: Progress as tolerated Driving Instructions after Dis: Do not drive today Weight Bearing Status after Di: As tolerated Diet after Discharge Diet after Discharge: Cardiac Wound Incision Care Wound/Incision Care: Ice to area for comfort, Change dressing Other wound/incision instructi: May change dressings postoperative day #3 to sterile Band-Aid Contacting the DRL[facility]oya after DC Call your doctor for: Concerns you may have Follow-Up Follow up with: 10 to 14 days CRYS VALE Jr. DO Aug 08, 2021 08:54
--- NOTE | 2021-08-08 09:14 | OP ---
DATE OF SURGERY: 08/08/2021 PREOPERATIVE DIAGNOSES: From chart is partial rotator cuff tear, possible rotator cuff tear with impingement and rotator cuff tendinitis, left shoulder. POSTOPERATIVE DIAGNOSES: From chart is partial rotator cuff tear, possible rotator cuff tear with impingement and rotator cuff tendinitis, left shoulder. PROCEDURE: Left shoulder arthroscopy with subacromial decompression and bursectomy. SURGEON: Jaziel Winkler Jr, DO. ANESTHESIA: General. COMPLICATIONS: None. ESTIMATED BLOOD LOSS: 20 mL. DESCRIPTION OF PROCEDURE: The patient was taken to the operative suite, given a general anesthetic. Left shoulder was prepped and draped in sterile fashion. Standard posterior portal was established. Glenohumeral joint was visualized and noted to be intact on the glenoid and the humeral surfaces. The undersurface of the rotator cuff looked completely intact at this point. No other lesions or abnormalities were noted at this point. Therefore, scope was then taken into the subacromial region. There was noted to be downsloping of the anterior acromion. Therefore, subacromial decompression was performed; however, there is no significant amount of bursal tissue around this area only minimal bursectomy. The rotator cuff was completely intact with some minimal fraying at this point, but approximately 5% fraying only. This was not deep fraying and certainly not a deep rotator cuff tear or need for repair. Therefore, all instruments were then removed. Wounds were reapproximated using 3-0 nylon. Sterile dressing was applied. The patient was then taken from the operative bed to the postoperative bed, taken to the PACU in stable condition. JACINTA DR: Floyd TID: [id number]
[2021-08-08] MEDS ORDERED: oxyCODONE/APAP 5/325 1 TAB TABLET PO ONE (09:30)
[2021-08-08 09:50] VITALS: BP 130/78
== END 2021-08-08 10:10 | disposition home or self-care (01) ==
LOC: SURG 05:40
PROVIDERS: ATTEND Orthopaedic Surgery
DX: M75.102 Unspecified rotator cuff tear or rupture of left shoulder, not specified as traumatic (principal); I10 Essential (primary) hypertension; E78.00 Pure hypercholesterolemia, unspecified; E66.9 Obesity, unspecified; K21.9 Gastro-esophageal reflux disease without esophagitis; Z90.49 Acquired absence of other specified parts of digestive tract; Z90.710 Acquired absence of both cervix and uterus; Z98.890 Other specified postprocedural states; Z79.899 Other long term (current) drug therapy; Z88.0 Allergy status to penicillin; Z88.5 Allergy status to narcotic agent; Z88.8 Allergy status to other drugs, medicaments and biological substances
CPT/HCPCS: 29826; A4930; J0171; J1100; J2250; J2370; J2405; J2704; J2710; J3010; J3490; A4223; A4452

== ENCOUNTER → 2021-09-11 | Outpatient (CLI) | payer OTHER, MEDICAID ==
[2020-12-19 14:19] VITALS: BP_SYST 130
[2021-08-08 09:50] VITALS: BP_DIAS 78
[~2021-09-11] MED LIST changes: +OXYC1TAB15 PO
--- NOTE | 2021-09-11 15:45 | CARD ---
MR#: [id number] Date of Study: 09/11/2021 Ordering Physician: ARISTIDES GREEN, Referring Physician: ARISTIDES GREEN Tech: Myrtle Lo [facility] APPROVED REPORT EXAM: Two-dimensional and M-mode echocardiogram with Doppler and color Doppler. Other Information Quality : Technically LimitedHR: 84bpm Rhythm : NSR INDICATION Dyspnea RISK FACTORS Hypertension Obesity Hyperlipidemia 2D DIMENSIONS Left Atrium(2D)3.5 (1.6-4.0cm)IVSd1.1 (0.7-1.1cm) Aortic Root(2D)3.7 (2.0-3.7cm)LVDd4.6 (3.9-5.9cm) LVOT Diameter2.3 (1.8-2.4cm)PWd1.2 (0.7-1.1cm) LVDs2.4 (2.5-4.0cm)FS (%) 47.3 % SV76.7 mlLVEF(%)78.8 (>50%) Aortic Valve AoV Peak Ed.128.3cm/sAoV VTI25.9cm AO Peak GR.6.6mmHgLVOT Peak Ed.113.3cm/s AO Mean GR.4mmHgAVA (VMAX)3.71cm2 Mitral Valve MV E Ecvmozdi59.5cm/sMV DECEL [id number] MV A Ablhikpm77.5cm/sE/A Ratio0.8 LEFT VENTRICLE The left ventricle is normal size. There is mild concentric left ventricular hypertrophy. The left ve ntricular systolic function is normal. Estimated ejection fraction 65%. There is normal LV segmental wall motion. Transmitral Doppler flow pattern is Grade I-abnormal relaxation pattern. RIGHT VENTRICLE The right ventricle is normal size. There is normal right ventricular wall thickness. The right ventr icular systolic function is normal. ATRIA The left atrium size is normal. The right atrium size is normal. The interatrial septum is intact wit h no evidence for an atrial septal defect or patent foramen ovale as noted on 2-D or Doppler imaging. AORTIC VALVE The aortic valve is normal in structure and function. Doppler and Color Flow revealed no significant aortic regurgitation. There is no significant aortic valvular stenosis. There is no aortic valvular v egetation. MITRAL VALVE The mitral valve is normal in structure and function. There is no evidence of mitral valve prolapse. There is no mitral valve stenosis. Doppler and Color Flow revealed no mitral valve regurgitation note d. TRICUSPID VALVE The tricuspid valve is normal in structure and function. Doppler and Color Flow revealed no tricuspid valve regurgitation noted. There is no tricuspid valve stenosis. PULMONIC VALVE The pulmonary valve is normal in structure and function. Doppler and Color Flow revealed trace pulmon ic valvular regurgitation. GREAT VESSELS The aortic root is normal in size. The ascending aorta is normal in size. The IVC is dilated and chaparro apses <50% with inspiration. PERICARDIAL EFFUSION There is no evidence of significant pericardial effusion. Critical Notification Critical Value: No <Conclusion> The left ventricular systolic function is normal. Estimated ejection fraction 65%. There is normal LV segmental wall motion. Transmitral Doppler flow pattern is Grade I-abnormal relaxation pattern. There is no evidence of significant pericardial effusion. Signed by : Aristides Green, Electronically Approved : 09/11/2021 15:45:11
== END ==
LOC: ECHO 14:04
PROVIDERS: ATTEND Internal Medicine Cardiovascular Disease
DX: I51.7 Cardiomegaly (principal); I25.10 Atherosclerotic heart disease of native coronary artery without angina pectoris
CPT/HCPCS: 93306; C8929